=== PATIENT | female | born 1965 | race Caucasian/White ===

== ENCOUNTER 2024-10-18 07:40 | Emergency (ER) | payer OTHER, SELFPAY ==
[2024-10-18 07:41] VITALS: BP 127/82; PULSE 67; RESP 16; TEMP 36.8; O2SAT 98; BMI 33.6
--- NOTE | 2024-10-18 07:55 | CT_ITS ---
PROCEDURE: BRAIN/HEAD WITHOUT CONTRAST 10/18/2024 REASON FOR EXAM: HEADACHE LEFT EYE PAIN TECHNIQUE: Procedure Code: CTBR Modality: CT Procedure: BRAIN/HEAD WITHOUT CONTRAST Coronal and Sagittal reconstruction series were provided. One or more dose reduction techniques were used (e.g., Automated exposure control, adjustment of the mA and/or kV according to patient size, use of iterative reconstruction technique. RADIATION DOSE SUMMARY: CTDlvol: 44.99 mGy DLP: 745.49 mGycm COMPARISON: None FINDINGS: Brain: Normal appearance of the brain parenchyma. No acute intracranial hemorrhage. No significant edema, mass effect, or midline shift. CSF Spaces: The ventricles are midline without hydrocephalus. Sinuses/Mastoids: Well aerated. Bones: No skull fracture. No destructive skull lesion. CT/Brain/Head without Contrast IMPRESSION: No acute intracranial process [id number]
[2024-10-18] MEDS: Tetracaine 0.5% Ophthalmic Bottle 1 DRP LEFT EYE (08:06)
--- NOTE | 2024-10-18 08:19 | EX.ED.VIS.EY ---
HPI History of Present Illness Chief Complaint: Eye Problem Narrative Narrative: Patient is a 59-year-old male female with no known significant past medical history who presents to the emergency department the chief complaint of left eye pain. Patient states that she woke up this morning with severe left eye pain and denies any injury or trauma to her eye she also states that she is nauseous and has a headache with this on the left side of her head. She states that she has not anything happen like this before. States that she called her eye doctor and they advised her to come to the emergency department as they are not open in [place] on the weekend. Patient states that she does wear contacts. States that her vision is normal out of her left eye PFSH PFSH Home Medications ?Medication ?Instructions ?Recorded ?Last Taken ?Type ciprofloxacin HCl 0.3 % eye drops See Rx Instructions EACH EYE 10/18/24 Unknown Rx .COMPLEX #10 mL Allergy/AdvReac Type Severity Reaction Status Date / Time aspirin Allergy Rash Verified 10/18/24 07:43 meperidine (From Demerol) Allergy Rash Verified 10/18/24 07:43 Sulfa (Sulfonamide Allergy Rash Verified 10/18/24 07:43 Antibiotics) ROS ROS ED ROS Narrative Constitutional: Complains headache as noted above denies lightness dizziness Eyes: Complains of left eye pain as noted above denies double vision blurry vision Abdomen: Complains of nausea denies vomiting or diarrhea : Denies urinary symptoms Neurological: Denies numbness, weakness, tingling Skin: Denies any rashes or lesions EXAM Physical Exam Narrative Exam Narrative: General: Patient was lying in bed did appear to be uncomfortable secondary to her left eye pain Head: Atraumatic, normocephalic Eyes: PERRL bilaterally, EOMI bilaterally, patient has redness noted in her left eye and the conjunctiva. No drainage from the left eye no hazy cornea noted Neck: Soft, supple, trachea midline Cardiovascular: Regular rate and rhythm no murmurs gallops rubs noted Respiratory: Clear to auscultation bilaterally Abdomen: No tenderness to palpation Extremities: +5/5 strength in the bilateral upper and lower extremities Neurological: Patient follow commands and that she was at [facility] year is 2024 NIH of 0 GCS 15 Skin: Warm, dry, tact no rashes lesions noted Const Vital Signs: 10/18/24 07:41 Temperature 98.3 F Temperature Source Oral Pulse Rate 67 Respiratory Rate 16 Blood Pressure 127/82 H Blood Pressure Mean 97 Pulse Ox 98 Oxygen Delivery Method Room Air MDM MDM MDM Narrative Medical decision making narrative: Patient is a 59-year-old female who presents to the emergency department chief complaint of left-sided headache, left eye pain. On the differential diagnose includes but limited to intracranial hemorrhage, complex migraine, acute angle-closure glaucoma, corneal abrasion, tension headache, cluster headache. Once workup is obtained reviewed she will be reevaluated. Patient be given a gram of Tylenol, Zofran and ODT. Patient's eye exam was performed tetracaine applied followed by fluorescein stain patient has small area of uptake in the cornea indicating small corneal abrasion intraocular pressure was taken and it was noted be 21. Patient CT head and brain without contrast showed no acute intracranial processes. Will discuss case with ophthalmology. Discussed case with on-call bsa officer Dr. Enriquez who states that he will see her in the office this morning. I discussed this plan with the patient she is agreeable this plan. Patient will be given eyedrops with pseudomonal coverage for her contact lens use she was advised to not use any contact lenses in that eye. She was vies return with worsening symptoms or concerns. She is agreeable to plan all course concerns answered she was discharged home in stable condition. Discharge Plan Triage Chief Complaint: Eye Problem ED Provider: Norberto Flanagan Dx/Rx/DC Orders Clinical Impression: Abrasion of cornea, left, Acute left eye pain, Headache Prescriptions: New ciprofloxacin HCl 0.3 % drops See Rx Instructions .ROUTE .COMPLEX Qty: 10 0RF Rx Instructions: put 1-2 drps in affected eye(s) every 2hr up to 8 times/day x2days; then 4 times/day x5days Primary Care Provider: Care Physician,No Primary Referrals: Luis Enriquez MD [Med Staff - Active Staff] - Care Physician,No Primary [Primary Care Provider] - Radha Koehler NP-C [[facility]] - Activity Restrictions/Additional Instructions: Go to the bsa officer office Dr. Enriquez at 1130 and he will see you in the office today. Use the eyedrops as prescribed. Do not put any contact lens in your left eye over the next several days. Return with worsening symptoms or any concerns. Rotate Tylenol and ibuprofen [id number] for your headache when you do this can take some every 3 hours with max dose Tylenol in 24 hours 4000 mg max dose of ibuprofen in 24 hours 3200 mg. Print Language: Chilean Disposition Disposition: Home, Self Care
--- OUTSIDE RECORDS SUMMARY | 2024-10-18 08:26 | XMS RPT_ITS | CCD ---
Author Organization [facility] Care Team Providers Care Spark Plug Tester Name Role Phone No Family, Physician Unavailable Unavailable JORGE A MANNING Unavailable Unavailable JORGE A MANNING Unavailable Unavailable JORGE A MANNING Unavailable Unavailable Javon Lott Attending Unavailable Spike LIZARRAGA, Andrea Durham Unavailable Huan AGRONOMY SUPERVISOR, Irwin Unavailable Unavailable Unavailable Unavailable Angela AGRONOMY SUPERVISOR, Christelle Unavailable Daniel ELLIS, Brittny Zambrano Unavailable Unavaila ble Jay AGRONOMY SUPERVISOR, Nickie Unavailable Unavailable HARTLEY SMT TECHNICIAN~[phone], HARTLEY AMI E Attending Unavailable NONE, NONE Primary Care Unavailable HARTLEY SMT TECHNICIAN, AMI E Consulting Unavailable HARTLEY SMT TECHNICIAN~[phone], HARTLEY AMI E Admitting Unavailable HARTLEY SMT TECHNICIAN, AMI E Consulting Unavailable NONE, NONE Consulting Unavailable NONE, NONE Consulting Unavailable SPIKE, LUKE E Attending Unavailable SPIKE, LUKE E Consulting Unavailable SPIKE, LUKE E Primary Care Unavailable SPIKE, LUKE E Admitting Unavailable PROVIDER, UNKNOWN Consulting Unavailable Allergies Allergy Classification Reported Allergen(s) Allergy Type Date of Onset Reaction(s) Facility (20 sources) Meperidine Drug Allergy [facility] (20 sources) Sulfonamides (Antibiotic) Itching [facility] (20 sources) Iodinated Contrast [facility] (1 source) Acetaminophen / oxyCODONE Drug Allergy [facility] (1 source) Aspirin Drug Allergy [facility] (1 source) bee venom Drug allergy (disorder) [facility] (1 source) Meperidine Drug Allergy [facility] (1 source) Morphine Drug Allergy [facility] (1 source) Sulfonamides (Antibiotic) Drug allergy (disorder) [facility] (1 source) Aspirin Drug Allergy [facility] (1 source) Meperidine Drug Allergy [facility] (1 source) Sulfonamides (Antibiotic) Drug allergy (disorder) [facility] (1 source) BEE STING; Translations: [BEE STING] Propensity to adverse reactions (disorder) [facility] Medications Current Medications Medication Drug Class(es) Dates Sig (Normalized) Sig (Original) amoxicillin 875 mg oral tablet (1 source) Penicillin-class Antibacterial Start: 11-27-2023 amoxicillin 875 mg tablet ; 1 (one) tablet twice a day for 7 days Quantity: 14 {Tablet} Refills: 0 Ordered: 27-Nov-2023 ELHAM Lala Start: 27-Nov-2023 Calcium Citrate / Cholecalciferol (2 sources) Vitamin D Calcium Citrate + D Completed/Discontinued Medications Medication Drug Class(es) Dates Sig (Normalized) Sig (Original) 12 hr buPROPion hydrochloride 150 mg extended release oral tablet (20 sources) Aminoketone Start: 05-04-2023 End: 11-27-2023 buPROPion HCL SR 150 mg tablet,12 hr sustained-release ; 1 (one) tablet twice daily for 30 days Quantity: 60 {Tablet} Refills: 2 Ordered: 27-Nov-2023 RENZO Thompson Start: 04-May-2023 End: 27-Nov-2023 Status: Inactive Start: 02-13-2023 buPROPion HCL SR 150 mg tablet,12 hr sustained-release ; 1 (one) tablet twice daily for 30 days Quantity: 60 {Tablet} Refills: 2 Ordered: 13-Feb-2023 ELHAM Lala Start: 13-Feb-2023 cholecalciferol 0.125 mg oral capsule (20 sources) Vitamin D Start: 05-08-2023 End: 11-27-2023 cholecalciferol (vitamin D3) 125 mcg (5,000 unit) capsule ; 1 (one) capsule daily for 30 days Quantity: 30 {Capsule} Refills: 2 Ordered: 27-Nov-2023 JayRENZO Nickie Start: 08-May-2023 End: 27-Nov-2023 Status: Inactive Start: 02-13-2023 cholecalcifero l (vitamin D3) 125 mcg (5,000 unit) capsule ; 1 (one) capsule daily for 30 days Quantity: 30 {Capsule} Refills: 2 Ordered: 13-Feb-2023 RENZO Pressley Irwin Start: 13-Feb-2023 ferrous sulfate 325 mg oral tablet (20 sources) Start: 04-17-2023 End: 05-17-2023 ferrous sulfate 325 mg (65 m g iron) tablet ; 1 (one) tablet two times daily for 30 days Quantity: 60 {Tablet} Refills: 0 Ordered: 17-Apr-2023 ELHAM Lala Start: 17-Apr-2023 End: 17-May-2023 Status: Inactive Start: 03-22-2023 ferrous sulfat e 325 mg (65 mg iron) tablet ; 1 (one) tablet two times daily for 30 days Quantity: 60 {Tablet} Refills: 0 Ordered: 22-Mar-2023 ELHAM Lala Start: 22-Mar-2023 Start: 02-13-2023 End: 03-15-2023 ferrous sulfate 325 mg (65 m g iron) tablet ; 1 (one) tablet two times daily for 30 days Quantity: 60 {Tablet} Refills: 0 Ordered: 13-Feb-2023 ELHAM Lala Start: 13-Feb-2023 End: 15-Mar-2023 Status: Inactive Problems Active Problems Problem Classification Problem Date Documented Da te Episodic/Chronic Administrative/social admission (20 sources) Encounter for pre-employment examination; Translations: [Worried well] Onset: 06-13-2018 02-06-2023 Episodic Deficiency and other anemia (20 sources) Iron deficiency anemia; Translations: [Iron deficiency anemia, unspecified] 02-13-2023 Episodic Disorders of teeth and jaw (20 sources) Infection of tooth; Translations: [Periapical abscess without sinus] 02-06-2023 Episodic Influenza (1 source) Influenza Onset: 03-09-2017 Malaise and fatigue (20 sources) Fatigue; Translations: [Other fatigue] 02-06-2023 Episodic Nutritional deficiencies (20 sources) Vitamin D deficiency; Translations: [Vitamin D deficiency, unspecified] 02-13-2023 Chronic Other aftercare (20 sources) Post-discharge follow-up; Translations: [Encounter for follow-up examination after completed treatment for conditions other than malignant neoplasm] 02-06-2023 Episodic Other screening for suspected conditions (not mental disorders or infectious disease) (20 sources) Patient encounter status; Translations: [Encounter for screening mammogram for malignant neoplasm of breast] 02-06-2023 Episodic Other upper respiratory infections (2 sources) Sinusitis; Translations: [Chronic sinusitis, unspecified] 11-28-2023 Chronic Residual codes; unclassified (20 sources) Tobacco use and exposure - finding; Translations: [Tobacco use] 02-06-2023 Episodic Unclassified (2 sources) ENCOUNTER FOR PRE-EMPLOYMENT EXAM / Z02.1(ICD-10) Onset: 09-26-2016 Unclassified (11 sources) Follow up for multiple chronic conditions - The patient is here for follow-up of other condition(s) (tobacco use, anemia). The patient always takes the prescribed medications. No side effects noted. The patient engages in regular exercise program 3-5 times per week. The patient states that the disease has no overall impact. Note for Multiple chronic conditions follow-up: Pt using vape pen 05-04-2023 Past or Other Problems Problem Classification Problem Date Documented Da te Episodic/Chronic Other gastrointestinal disorders (3 sources) Bariatric surgery status; Translations: [BARIATRIC SURGERY STATUS] Onset: 10-19-2023 Episodic Unclassified (1 source) ENCOUNTER FOR PRE-EMPLOYMENT EXAM; Translations: [ENCOUNTER FOR PRE-EMPLOYMENT EXAM] Onset: 09-25-2016 Unclassified (20 sources) Labs - Patient here to discuss what lab work needs done and to update on dental appointment. Patient states that she was recently to her dentist and he is planning to place orthodontic device following numerous extractions. She notes that her dentist voiced possible concern for a swollen lymph node and wanted to check if this was something to be concerned about. Patient notes primary concern for a source of her fatigue/tiredness, as discussed at previous OV patient is concerned for possible nutrient deficiency based on her history of Amador-en-Y gastric bypass, she also notes possible concern for decreased activity since her dental procedures as the source of symptoms. Patient also voices concern for smoking cessation stating that she has experienced improvement with regular exercise and nicotine replacement patches in the past but is unsure if she should be trying a different option for treatment. 02-07-2023 Unclassified (20 sources) New Patient 01-19-2023 Unclassified (20 sources) [ADDITIONAL REASON] Follow up consultation - The patient is here to follow-up after Emergency Room/Urgent Care (Patient seen at [facility] ER on 01/08/23 for Dental pain and Periodontal abscess. She was given Clindamycin IV at the ER and given Clindamycin to take orally TID X 7 days as well as Zofran as needed.). Note for Consultation follow-up: She had 6 teeth removed on 01/02/23. She contacted her dentist office and was put on Amoxicillin and Medrol Donovan 01/06/23. She was having increased mouth pain and not feeling well. Her dentist was unable to see her on 01/08/2023. Later that day, she went to the ER because she was concerned of her heart. She was seen by dentist on 01/11/23 and again yesterday. 01-19-2023 Unclassified (20 sources) Follow up laboratory test results - Note for Laboratory test results follow-up: Pt labs drawn 02/06/23, here to review results and determine if nutrient supplementation indicated. Pt would also like to discuss initiating management for smoking cessation and medication options. 02-13-2023 Unclassified (3 sources) Follow up consultation - The patient is here to follow-up after Emergency Room/Urgent Care (Patient seen at [facility] ER on 01/08/23 for Dental pain and Periodontal abscess. She was given Clindamycin IV at the ER and given Clindamycin to take orally TID X 7 days as well as Zofran as needed.). Note for Consultation follow-up: She had 6 teeth removed on 01/02/23. She contacted her dentist office and was put on Amoxicillin and Medrol Donovan 01/06/23. She was having increased mouth pain and not feeling well. Her dentist was unable to see her on 01/08/2023. Later that day, she went to the ER because she was concerned of her heart. She was seen by dentist on 01/11/23 and again yesterday. 01-19-2023 Unclassified (3 sources) [ADDITIONAL REASON] New Patient 01-19-2023 Unclassified (1 source) Cold Symptoms 11-27-2023 Unclassified (1 source) Cold Symptoms - Symptoms include nasal congestion, runny nose, ear pain, sore throat, hoarseness, productive cough (and chest congestion), chills, general malaise and headache, but do not include fever. The onset was gradual 9 day(s) ago. The symptoms occur frequently. The patient describes this as moderate in severity and worsening. Current treatment includes NSAIDs (none today). Risk factors do not include smoking. The patient has been exposed to an individual with similar symptoms (). Patient denies history of seasonal allergies, recurrent sinusitis, recurrent strep pharyngitis, asthma, tonsillectomy or recurrent ear infections. Note for Upper respiratory infection: patient had vomiting and diarrhea last Sunday and Sunday11-27-2023 Unclassified (1 source) Cold Symptoms - Symptoms include nasal congestion, runny nose, ear pain, sore throat, hoarseness, productive cough (and chest congestion), chills, general malaise and headache, but do not include fever. The onset was gradual 9 day(s) ago. The symptoms occur frequently. The patient describes this as moderate in severity and worsening. Current treatment includes NSAIDs (none today). Risk factors do not include smoking. The patient has been exposed to an individual with similar symptoms (). Patient denies history of seasonal allergies, recurrent sinusitis, recurrent strep pharyngitis, asthma, tonsillectomy or recurrent ear infections. Note for Upper respiratory infection: patient had vomiting and diarrhea last Sunday and Sunday11-28-2023 Results Test Name Value Interpretation Reference Range Facility COPPERon 10-23-2023 Copper, Serum 113 ug/dL Normal 80-158 [facility] Comment on above: Result Comment: Dete ction Limit = 5 Performed By: #### C OPPER #### Performed for [facility] [address] [place], [place] [address] VITAMIN B1 THIAMINEon 2023 Vit. B1, Whole Blood 113.0 nmol/L Normal 66.5-200.0 [facility] Comment on above: Performed By: #### [employer] #### Performed for [place] [address] [place], [place] [address] ZINCon 10-23-2023 Zinc, Plasma or Serum 83 ug/dL Normal 44-115 [facility] Comment on above: Result Comment: Dete ction Limit = 5 Performed By: #### [employer] #### Performed for [place] [address] [place], [place] [address] SELENIUMon 10-22-2023 Selenium, Serum/Plasma 151 ug/L Normal 93-198 [facility] Comment on above: Performed By: #### [employer] #### Performed for [place] [address] [place], [place] [address] VITAMIN B6on 10-22-2023 Vitamin B6 4.1 ug/L Normal 3.4-65.2 [facility] Comment on above: Result Comment: Defi ciency: <3.4 Marginal: 3.4 - 5.1 Adequate: >5.1 Performed By: #### V B6 #### Performed [address], [place] [address] 25-hydroxyvitamin D [Mass/Vo l]on 10-19-2023 25-hydroxyvitamin D3 [Mass/Vol] 27.1 ng/mL Low 30.0-100.0 [facility] Comment on above: Performed By: #### 6 2292-8 #### [place] [address] [place] - [place] HERNANDEZ [id number] HVITD VITAMIN D INTERPRETA TION VITAMIN D STATUS RANGE DEFICIENCY <20 ng/mL INSUFFICIENCY 20-30 ng/mL SUFFICIENCY 30-100 ng/mL TOXICITY >100 ng/mL Normal [facility] Comment on above: Performed By: #### 6 2292-8 #### [place] [address] [place] - [place] HARDYIA [id number] CBC W Auto Differential pane l (Bld)on 10-19-2023 Basophils (Bld) [#/Vol] 0.05 10*3/uL Normal <=0.70 [facility] Comment on above: Performed By: #### 5 7021-8 #### [facility] [address] [place] [address] [place] - [place] HARDYIA [id number] Basophils/100 WBC (Bld) 0.8 % Normal <=2.0 [facility] Comment on above: Performed By: #### 5 7021-8 #### [address] [facility] Director - [place] HARDYIA [id number] Eosinophils (Bld) [#/Vol] 0.07 10*3/uL Normal <=0.70 [facility] Comment on above: Performed By: #### 5 7021-8 #### [place] [address] [place] [address] [place] - [place] HARDYIA [id number] Eosinophils/100 WBC (Bld) 1.2 % Normal <=10.0 [facility] Comment on above: Performed By: #### 5 7021-8 #### [address] [place] [address] [place] - [place] HARDYIA [id number] Erythrocyte distribution width (RBC) [Entitic vol] 39.8 fL Normal 36.4-46.3 [facility] Comment on above: Performed By: #### 5 7021-8 #### [place] [address] [place] [address] [place] - [place] HARDYIA [id number] Hematocrit (Bld) [Volume fraction] 40.2 % Normal 37.0-47.0 [facility] Comment on above: Performed By: #### 5 7021-8 #### [address] [place] [address] [place] - [place] HARDYIA [id number] Hemoglobin (Bld) [Mass/Vol] 13.5 g/dL Normal 12.0-16.0 [facility] Comment on above: Performed By: #### 5 7021-8 #### [place] [address] [place] - [place] Herzog CLIA [id number] Immature granulocytes (Bld) [#/Vol] 0.01 10*3/uL Normal <=0.10 [facility] Comment on above: Performed By: #### 5 7021-8 #### [place] [address] [place] - [place] Herzog CLIA [id number] Immature granulocytes/100 WBC (Bld) 0.20 % Normal <=1.50 [facility] Comment on above: Performed By: #### 5 7021-8 #### [place] [address] [place] - [place] Herzog CLIA [id number] Lymphocytes (Bld) [#/Vol] 2.15 10*3/uL Normal 1.20-3.40 [facility] Comment on above: Performed By: #### 5 7021-8 #### [place] [address] [place] - [place] Herzog CLIA [id number] Lymphocytes/100 WBC (Bld) 35.4 % Normal 20.0-40.0 [facility] Comment on above: Performed By: #### 5 7021-8 #### [place] [address] [place] - [place] Herzog CLIA [id number] MCH (RBC) [Entitic mass] 29.1 pg Normal 27.0-31.0 [facility] Comment on above: Performed By: #### 5 7021-8 #### [place] [address] [place] - [place] Herzog CLIA [id number] MCHC (RBC) [Mass/Vol] 33.6 g/dL Normal 32.0-36.0 [facility] Comment on above: Performed By: #### 5 7021-8 #### [place] [address] [facility]. [place] [address] [place] - [place] HARDYIA [id number] MCV (RBC) [Entitic vol] 86.6 fL Normal 80.0-100.0 [facility] Comment on above: Performed By: #### 5 7021-8 #### [address] [place] [address] [place] - [place] Herzog CLIA [id number] Monocytes (Bld) [#/Vol] 0.36 10*3/uL Normal 0.10-0.60 [facility] Comment on above: Performed By: #### 5 7021-8 #### [address] [place] [address] [place] - [place] Herzog CLIA [id number] Monocytes/100 WBC (Bld) 5.9 % Normal <=8.0 [facility] Comment on above: Performed By: #### 5 7021-8 #### [address] [place] [address] [place] - [place] Herzog CLIA [id number] Neutrophils (Bld) [#/Vol] 3.44 10*3/uL Normal 1.40-6.50 [facility] Comment on above: Performed By: #### 5 7021-8 #### [address] [place] [address] [place] - [place] Herzog CLIA [id number] Neutrophils/100 WBC (Bld) 56.5 % Normal 50.0-70.0 [facility] Comment on above: Performed By: #### 5 7021-8 #### [address] [place] [address] [place] - [place] Herzog CLIA [id number] Nucleated RBC (Bld) [#/Vol] 0.00 10*3/uL Normal <=0.10 [facility] Comment on above: Performed By: #### 5 7021-8 #### [facility] [address] [place] [address] [place] - [place] HERNANDEZ [id number] Platelet mean volume (Bld) [Entitic vol] 10.2 fL Normal 9.0-13.0 [facility] Comment on above: Performed By: #### 5 7021-8 #### [facility] [address] [place] [address] [place] - [place] HARDYIA [id number] Platelets (Bld) [#/Vol] 310 10*3/uL Normal 130-400 [facility] Comment on above: Performed By: #### 5 7021-8 #### [facility] [address] [place] [address] [place] - [place] HERNANDEZ [id number] RBC (Bld) [#/Vol] 4.64 10*6/uL Normal 4.00-6.30 [facility] Comment on above: Performed By: #### 5 7021-8 #### [facility] [address] [place] [address] [place] - [place] HARDYIA [id number] WBC (Bld) [#/Vol] 6.08 10*3/uL Normal 4.80-10.80 [facility] Comment on above: Performed By: #### 5 7021-8 #### [facility] [address] [place] [address] [place] - [place] HERNANDEZ [id number] Comprehensive metabolic 2000 panelon 10-19-2023 Albumin [Mass/Vol] 3.9 g/dL Normal 3.4-5.0 [facility] Comment on above: Performed By: #### 2 276-4, 91061-8, 49313-4, 2284-8, 19118-6, 2132-9, 87306-1 #### [facility] [address] [place] [address] [place] - [place] HERNANDEZ [id number] ALP [Catalytic activity/Vol] 99 U/L Normal 50-136 [facility] Comment on above: Performed By: #### 2 276-4, 64075-2, 77460-5, 2284-8, 16703-9, 2131-9, 37918-4 #### [facility] [address] [place] [address] [place] - [place] HERNANDEZ [id number] ALT [Catalytic activity/Vol] 39 U/L Normal 14-59 [facility] Comment on above: Performed By: #### 2 276-4, 31814-4, 93174-0, 2284-8, 29629-5, 2131-9, 49820-6 #### [facility] [address] [place] [address] [place] - [place] HERNANDEZ [id number] Anion gap [Moles/Vol] 6.0 mmol/L Normal <=15.0 [facility] Comment on above: Performed By: #### 2 276-4, 45864-1, 12363-7, 2284-8, 42247-0, 2131-9, 02910-0 #### [facility] [address] [place] [address] [place] - [place] HERNANDEZ [id number] AST [Catalytic activity/Vol] 24 U/L Normal 15-37 [facility] Comment on above: Performed By: #### 2 276-4, 83629-8, 95662-1, 2284-8, 42161-4, 2131-9, 93749-4 #### [facility] [address] [place] [address] [place] - [place] HERNANDEZ [id number] Bilirubin [Mass/Vol] 0.5 mg/dL Normal 0.2-1.0 [facility] Comment on above: Performed By: #### 2 276-4, 24904-4, 82817-5, 2284-8, 92371-0, 2131-9, 88695-9 #### [facility] [address] [place] [address] [place] - [place] HERNANDEZ [id number] Calcium [Mass/Vol] 9.9 mg/dL Normal 8.5-10.1 [facility] Comment on above: Performed By: #### 2 276-4, 96107-1, 00639-5, 2284-8, 83304-8, 213-9, 11019-6 #### [facility] [address] [place] [address] [place] - [place] HERNANDEZ [id number] Chloride [Moles/Vol] 107 mmol/L Normal 98-107 [facility] Comment on above: Performed By: #### 2 276-4, 91203-7, 95290-9, 2284-8, 33238-0, 2131-9, 33177-3 #### [facility] [address] [place] [address] [place] - [place] HERNANDEZ [id number] CO2 [Moles/Vol] 28 mmol/L Normal 21-32 [facility] Comment on above: Performed By: #### 2 276-4, 44789-7, 45568-0, 2284-8, 06189-1, 2131-9, 24643-8 #### [facility] [address] [place] [address] [place] - [place] HERNANDEZ [id number] Creatinine [Mass/Vol] 0.62 mg/dL Normal 0.51-0.95 [facility] Comment on above: Performed By: #### 2 276-4, 24999-5, 09205-8, 2284-8, 00645-8, 2131-9, 99019-7 #### [facility] [address] [place] [address] [place] - [place] HERNANDEZ [id number] GFR/1.73 sq M.predicted MDRD (S/P/Bld) [Vol rate/Area] mL/min/{1.73_m2} Normal >=59 [facility] Comment on above: Performed By: #### 2 276-4, 39929-8, 64639-1, 2284-8, 31810-2, 2131-9, 00975-8 #### [facility] [address] [place] [address] [place] - [place] HERNANDEZ [id number] Glucose [Mass/Vol] 99 mg/dL Normal 74-106 [facility] Comment on above: Performed By: #### 2 276-4, 91711-0, 90059-5, 2284-8, 42428-3, 2131-9, 26411-7 #### [facility] [address] [place] [address] [place] - [place] HERNANDEZ [id number] HGFR GLOMERULAR FILTRATIO N RATE INTERPRETATION~The eGFR is calculated using the MDRD equation.~This equation has been validated in patients with chronic kidney disease;~however, it underestimates the GFR in healthy patients with GFR's over 60 mL/min.~The equation is not valid in children under the age of 18.~NOTE: Criteria for Chronic Kidney Disease:~ ~1. Kidney damage for at least three months, as defined~by structural or functional abnormalities of the kidney,~with or without decreased glomerular filtration rate, manifested by either:~* Pathological abnormalities or~* Markers of Kidney damage, including abnormalities in~the composition of the blood or urine or abnormalities in imaging tests.~ ~2. GFR <60 mL/min/1.73 m squared for at least three months, with or without kidney damage.~ Normal [facility] Comment on above: Performed By: #### 2 276-4, 44093-9, 34496-6, 2284-8, 25451-4, 2131-9, 08710-7 #### [facility] [address] [place] [address] [place] - [place] HERNANDEZ [id number] Potassium [Moles/Vol] 4.3 mmol/L Normal 3.5-5.1 [facility] Comment on above: Performed By: #### 2 276-4, 51803-8, 41451-7, 2284-8, 74084-5, 2131-9, 07492-8 #### [facility] [address] [place], [place] [address] [facility] [facility] [id number] Protein [Mass/Vol] 7.1 g/dL Normal 6.4-8.2 [facility] Comment on above: Performed By: #### 2 276-4, 17572-5, 90003-3, 2284-8, 48470-2, 2132-9, 35515-0 #### [facility] [address] [place] [address] [place] - [facility] [id number] Sodium [Moles/Vol] 141 mmol/L Normal 136-145 [facility] Comment on above: Performed By: #### 2 276-4, 69192-4, 43869-0, 2284-8, 61156-0, 2-9, 61636-1 #### [place] [address] [place] [address] [place] - [facility] [id number] Urea nitrogen [Mass/Vol] 15 mg/dL Normal 7-17 [facility] Comment on above: Performed By: #### 2 276-4, 62150-1, 51421-3, 2284-8, 80032-3, 2132-9, 72814-6 #### [place] [address] [place], [place] [address] [place] - [facility] [id number] FERRITINon 10-19-2023 Ferritin [Mass/Vol] 11 ng/mL Normal 8-252 [facility] Comment on above: Performed By: #### Z INC #### Performed for [facility] [address] [place], [place] [address] FOLATEon 10-19-2023 Folate [Mass/Vol] 14.6 ng/mL Normal 3.1-17.5 [facility] Comment on above: Performed By: #### [employer] #### Performed for [facility] [address] [place], [place] [address] HbA1c Calc (Bld) [Mass fract ion]on 09-06-2024 Average glucose Estimated from glycated hemoglobin (Bld) [Mass/Vol] 111 mg/dL Normal 68-125 [facility] Comment on above: Performed By: #### 1 7855-8 #### [facility] [address] [facility]. [place] [address] Shorer - Ana HERNANDEZ [id number] HA1C A1C INTERPRETATION % A1c (NGSP) Interpretation 3.8 - 6.4 Non-Diabetic Range 5.7 - 6.4 Prediabetic >6.5 Action Suggested The eAG (estimated average glucose) is an estimation of one?s average blood glucose level, calculated based on A1C test results, reported using the same units (mg/dL) seen on blood glucose meters. Normal [facility] Comment on above: Performed By: #### 1 7855-8 #### [address] [place] [address] Shorer - Ana HERNANDEZ [id number] HbA1c (Bld) [Mass fraction] 5.5 %A1C Normal 4.2-6.3 [facility] Comment on above: Performed By: #### 1 7855-8 #### [place] [address] [facility]. [place] [address] Shorer - Ana HERNANDEZ [id number] Iron and Iron binding capaci ty panelon 10-19-2023 Iron [Mass/Vol] 96 ug/dL Normal 50-170 [facility] Comment on above: Performed By: #### [employer] #### Performed for [facility] [address], [place] [address] Iron binding capacity [Mass/Vol] 462 ug/dL High 250-450 [facility] Comment on above: Performed By: #### [employer] #### Performed for [address] [address] Iron saturation [Mass fraction] 21 % Low 25-50 [facility] Comment on above: Performed By: #### [employer] #### Performed for [place] [address] [place], [place] [address] Lipid panel with direct LDLo n 10-19-2023 Cholesterol [Mass/Vol] 240 mg/dL High <=200 [facility] Comment on above: Performed By: #### 2 276-4, 09561-3, 29442-0, 2284-8, 35990-7, 2132-9, 66189-8 #### [facility] [address] [place], [place] [address] Shorer - Ana HERNANDEZ [id number] Cholesterol in HDL [Mass/Vol] 90 mg/dL High 40-59 [facility] Comment on above: Performed By: #### 2 276-4, 81901-9, 64376-7, 2284-8, 01442-4, 2132-9, 06685-6 #### [facility] [address] [place] [address] Shorer - Ana HERNANDEZ [id number] Cholesterol in LDL [Mass/Vol] 127 mg/dL High 5-100 [facility] Comment on above: Performed By: #### 2 276-4, 48757-6, 19778-6, 2284-8, 78210-8, 2132-9, 80655-2 #### [facility] [address] [place] [address] Shorer - Ana HERNANDEZ [id number] Cholesterol in LDL/Cholesterol in HDL [Mass ratio] 1.4 {ratio} Normal [facility] Comment on above: Performed By: #### 2 276-4, 83977-0, 95924-2, 2284-8, 75594-2, 2132-9, 08565-2 #### [facility] [address] [place] [address] Shorer - Ana HERNANDEZ [id number] Cholesterol.total/ Cholesterol in HDL [Mass ratio] 2.7 {ratio} Normal [facility] Comment on above: Performed By: #### 2 276-4, 22888-4, 52707-4, 2284-8, 94077-6, 2132-9, 54013-4 #### [facility] [address] [place] [address] Shorer - Ana HERNANDEZ [id number] HCHOL CHOLESTEROL INTERPRETATION Desirable <200 Borderline High 200-239 High >240 Normal [facility] Comment on above: Performed By: #### 2 276-4, 94007-6, 37624-4, 2283-8, 63307-6, 2131-10, #### [facility] [address] [place] [address] Shorer - Ana HERNANDEZ [id number] HLDL LDL INTERPRETATION Desirable <100 Near Optimal 100-129 Borderline High 130-159 High 160-190 Very High >190 Normal [facility] Comment on above: Performed By: #### 2 276-4, 67512-2, 61059-7, 2283-8, 56058-3, 2131-10, #### [facility] [address] [place] [address] Shorer - Ana HERNANDEZ [id number] HLIPID ATEROSCLEROSIS RISK FACTORS FOR LDL, HDL, AND CHOLESTEROL RISK FACTOR SEX LDL/HDL CHOL/HDL - 1/2 Average M 1.00 3.43 F 1.47 3.27 Average M 3.55 4.97 F 3.22 4.44 2X Average M 6.25 9.55 F 5.03 7.05 3X Average M 7.99 23.39 F 6.14 11.04 Normal [facility] Comment on above: Performed By: #### 2 276-4, 80290-9, 65181-8, 4-8, 39837-5, 9, #### [facility] [address] [facility] [place] [address] Shorer - Ana HERNANDEZ [id number] HTRIG TRIGLYCERIDES INTERPRETATION Normal <150 Borderline High 150-199 High 200-499 Very High >500 Normal [facility] Comment on above: Performed By: #### 2 276-4, 43028-3, 48566-7, 2284-8, 21140-9, 2131-9, 62117-3 #### [facility] [address] [place] [address] Shorer - Ana HERNANDEZ [id number] Triglyceride [Mass/Vol] 118 mg/dL Normal <=150 [facility] Comment on above: Performed By: #### 2 276-4, 07984-7, 22102-3, 2284-8, 12046-2, 2131-9, 97383-5 #### [facility] [address] [place] [address] Shorer - Ana HERNANDEZ [id number] PT Coag (PPP) [Time]on 10-18 HPTINR INR REFERENCE RANGE INTERPRETATION Patients on Coumadin 2.0 - 3.0 Patients with mechanical heart valves 2.5 - 3.5 Normal [facility] Comment on above: Performed By: #### 5 902-2 #### [facility] [address] [place] [address] Shorer - Ana HERNANDEZ [id number] INR Coag (PPP) [Relative time] 1.0 {INR} Normal 0.8-1.1 [facility] Comment on above: Performed By: #### 5 902-2 #### [facility] [address] [place] [address] Shorer - Ana HERNANDEZ [id number] PT with INRon 10-19-2023 PT Coag (PPP) [Time] 10.8 s Normal 9.3-11.5 [facility] Comment on above: Performed By: #### 5 902-2 #### [facility] [address] [place] [address] Shorer - Ana HERNANDEZ [id number] PTH INTACTon 10-19-2023 Parathyrin.intact [Mass/Vol] 62.6 pg/mL Normal 18.4-80.1 [facility] Comment on above: Performed By: #### 2 731-8 #### [facility] [address] [place], [place] [address] Shorer - Ana HERNANDEZ [id number] Parathyrin.intact [Mass/Vol] on 10-19-2023 Calcium [Mass/Vol] 9.8 mg/dL Normal 8.5-10.1 [facility] Comment on above: Performed By: #### 2 731-8 #### [facility] [address] [place] [address] Shorer - Ana Herzog [facility] [id number] HIPTH INTACT PTH INTERPRET ATION Interpretation Intact PTH Calcium (pg/mL) (mg/dL) Normal 10.0 - 65.0 8.4 - 10.2 Primary Hyperparathyroidism >65.0 >10.2 Secondary Hyperparathyroidism >65.0 <10.2 Non-Parathyroid Hypercalcemia <65.0 >10.2 Hypoparathyroidism <10.2 <8.4 Non-Parathyroid Hypocalcemia 10.0 - 65.0 <8.4 Careful interpretation of the PTH result may be necessary to evaluate the falsely depressed PTH values in patients taking high doses of biotin. Normal [facility] Comment on above: Performed By: #### 2 731-8 #### [facility] [address] [place], [place] [address] Shorer - Ana Herzog [facility] [id number] TSH DL <= 0.05 mIU/L Qnon TSH Qn 0.869 uIU/mL Normal 0.358-3.740 [facility] Comment on above: Performed By: #### [employer] #### Performed for [facility] [address] [place], [place] [address] VITAMIN B12on 10-19-2023 Cobalamin (Vitamin B12) [Mass/Vol] 1508 pg/mL High 254-1,320 [facility] Comment on above: Performed By: #### [employer] #### Performed for [facility] [address] [place], [place] [address] CBC (INCLUDES DIFF/PLT)on Basophils (Bld) [#/Vol] 0.068 10*3/uL Normal 0-200 [facility] Comment on above: Performed By: #### 1 7306, 6399, 5616 #### [facility] [place] [address] Shorer: Wally Christensen MD Basophils/100 WBC (Bld) 1.1 % Normal [facility] Comment on above: Performed By: #### 1 7306, 6399, 5616 #### [facility] [place] [address] Shorer: Wally Christensen MD Eosinophils (Bld) [#/Vol] 0.093 10*3/uL Normal 15-500 [facility] Comment on above: Performed By: #### 1 7306, 63, 5616 #### [facility] of [place] [address] Shorer: Wally Christensen MD Eosinophils/100 WBC (Bld) 1.5 % Normal [facility] Comment on above: Performed By: #### 1 73, 63, 5616 #### [facility] [place] [address] Shorer: Wally Christensen MD Erythrocyte distribution width (RBC) [Ratio] 23.5 % High 11.0-15.0 [facility] Comment on above: Performed By: #### 1 7306, 63, 5616 #### [facility] [place] [address] Shorer: Wally Christensen MD Hematocrit (Bld) [Volume fraction] 39.6 % Normal 35.0-45.0 [facility] Comment on above: Performed By: #### 1 7306, 6399, 5616 #### [facility] [place] [address] Shorer: Wally Christensen MD Hemoglobin (Bld) [Mass/Vol] 13.0 g/dL Normal 11.7-15.5 [facility] Comment on above: Performed By: #### 1 7306, 63, 5616 #### [facility] [place] [address] Shorer: Wally Christensen MD Lymphocytes (Bld) [#/Vol] 2.003 10*3/uL Normal 850-3900 [facility] Comment on above: Performed By: #### 1 73, 63, 5616 #### [facility] [place] [address] Shorer: Wally Christensen MD Lymphocytes/100 WBC (Bld) 32.3 % Normal [facility] Comment on above: Performed By: #### 1 73, 63, 5616 #### [facility] [place] [address] Shorer: Wally Christensen MD MCH (RBC) [Entitic mass] 26.0 pg Low 27.0-33.0 [facility] Comment on above: Performed By: #### 1 73, 63, 5616 #### [facility] [place] [address] Shorer: Wally Christensen MD MCHC (RBC) [Mass/Vol] 32.8 g/dL Normal 32.0-36.0 [facility] Comment on above: Performed By: #### 1 73, 63, 5616 #### [facility] [place] [address] Shorer: Wally Christensen MD MCV (RBC) [Entitic vol] 79.2 fL Low 80.0-100.0 [facility] Comment on above: Performed By: #### 1 73, 63, 5616 #### [facility] [place] [address] Shorer: Wally Christensen MD Monocytes (Bld) [#/Vol] 0.453 10*3/uL Normal 200-950 [facility] Comment on above: Performed By: #### 1 73, 63, 5616 #### [facility] of [address], [address] [place] [address] Shorer: Wally Christensen MD Monocytes/100 WBC (Bld) 7.3 % Normal [facility] Comment on above: Performed By: #### 1 7306, 6399, 5616 #### [facility] of [address], [address] [place] [address] Shorer: Wally Christensen MD Neutrophils (Bld) [#/Vol] 3.584 10*3/uL Normal 3884-7673 [facility] Comment on above: Performed By: #### 1 7306, 6399, 5616 #### [facility] of [address], [address] [place] [address] Shorer: Wally Christensen MD Neutrophils/100 WBC (Bld) 57.8 % Normal [facility] Comment on above: Performed By: #### 1 73, 63, 5616 #### [facility] of [address], [address] [place] [address] Shorer: Wally Christensen MD Platelet mean volume (Bld) [Entitic vol] 10.5 fL Normal 7.5-12.5 [facility] Comment on above: Performed By: #### 1 7306, 6399, 5616 #### [facility] of [address], [address] [place] [address] Shorer: Wally Christensen MD Platelets (Bld) [#/Vol] 326 10*3/uL Normal 140-400 [facility] Comment on above: Performed By: #### 1 7306, 6399, 5616 #### [facility] of [address], [address] [place] [address] Shorer: aWlly Christensen MD RBC (Bld) [#/Vol] 5.00 10*6/uL Normal 3.80-5.10 [facility] Comment on above: Performed By: #### 1 7306, 6399, 5616 #### [facility] of [address], [address] [place] [address] Shorer: Wally Christensen MD WBC (Bld) [#/Vol] 6.2 10*3/uL Normal 3.8-10.8 [facility] Comment on above: Performed By: #### 1 7306, 6399, 5616 #### [facility] of [address], [address] [place] [address] Shorer: Wally Christensen MD CBC MORPHOLOGYon 05-05-2023 CBC MORPHOLOGY Normal NORMAL [facility] Comment on above: Result Comment: Vicky ptocytes 2 + Acanthocytes 2 + Poikilocytosis 3 + Sony cells 2 + Performed By: #### 1 7306, 6399, 5616 #### [facility] of [address], [address] [place] [address] Shorer: Wally Christensen MD IRON, TIBC AND FERRITIN PANE Horace 05-05-2023 % SATURATION 25 % (calc) Normal 16-45 [facility] Comment on above: Performed By: #### 1 7306, 6399, 5616 #### [facility] of [address], [address] [place] [address] Shorer: Wally Christensen MD Ferritin [Mass/Vol] 14 ng/mL Low 16-232 [facility] Comment on above: Performed By: #### 1 7306, 6399, 5616 #### [facility] of [address], [address] [place] [address] Shorer: Wally Christensen MD IRON BINDING CAPACITY 422 mcg/dL (calc) Normal 250-450 [facility] Comment on above: Performed By: #### 1 7306, 6399, 5616 #### [facility] of [address], [address] [place] [address] Shorer: Wally Christensen MD IRON, TOTAL 105 mcg/dL Normal 45-160 [facility] Comment on above: Performed By: #### 1 7306, 6399, 5616 #### [facility] of [address], [address] [place] [address] Shorer: Wally Christensen MD VITAMIN D,25-OH,TOTAL,IAon 0 05-05-2023 VITAMIN D,25-OH,TOTAL,IA 34 ng/mL Normal 30-100 [facility] Comment on above: Result Comment: Lesley min D Status 25-OH Vitamin D: Deficiency: <20 ng/mL Insufficiency: 20 - 29 ng/mL Optimal: > or = 30 ng/mL For 25-OH Vitamin D testing on patients on D2-supplementation and patients for whom quantitation of D2 and D3 fractions is required, the Quest[facility]ure[facility](TM) 25-OH VIT D, (D2,D3), LC/MS/MS is recommended: order code 92165 (patients >2yrs). See Note 1 Note 1 For additional information, please refer to http://education.FunGoPlay/faq/GKC597 (This link is being provided for informational/ educational purposes only.) Performed By: #### 1 7306, 6399, 5616 #### [facility] [address], [address] [place] [id number] Shorer: Wally Christensen MD Laboratory - Chemistry and C hemistry - challengeon 05-04-2023 Ferritin [Mass/Vol] 14 ng/mL Abnormal 16 - 232 ng/mL [facility], [facility].; [employer], [facility]. Laboratory - Hematology and Cell countson 05-04-2023 Basophils (Bld) [#/Vol] 0.068 10*3/uL Normal 0 - 200 {cells/uL} [employer], [employer].; [employer], [employer]. Basophils/100 WBC (Bld) 1.1 % Normal [employer], [facility].; [employer] Eosinophils (Bld) [#/Vol] 0.093 10*3/uL Normal 15 - 500 {cells/uL} [employer], [facility].; [employer], [employer]. Eosinophils/100 WBC (Bld) 1.5 % Normal [employer], [facility].; [employer] Erythrocyte distribution width (RBC) [Ratio] 23.5 % Abnormal 11.0 - 15.0 % [employer], [facility]. Hematocrit (Bld) [Volume fraction] 39.6 % Normal 35.0 - 45.0 % [facility]; [facility], [facility] Hemoglobin (Bld) [Mass/Vol] 13.0 g/dL Normal 11.7 - 15.5 g/dL [facility].; [facility], [facility] Lymphocytes (Bld) [#/Vol] 2.003 10*3/uL Normal 850 - 3900 {cells/uL} [facility].; [facility], [facility] Lymphocytes/100 WBC (Bld) 32.3 % Normal [facility].; [facility], [facility] MCH (RBC) [Entitic mass] 26.0 pg Abnormal 27.0 - 33.0 pg [facility].; [facility], [facility]. MCHC (RBC) [Mass/Vol] 32.8 g/dL Normal 32.0 - 36.0 g/dL [facility], [facility].; [place] [facility], [facility] MCV (RBC) [Entitic vol] 79.2 fL Abnormal 80.0 - 100.0 fL [facility].; [facility], [facility]. Monocytes (Bld) [#/Vol] 0.453 10*3/uL Normal 200 - 950 {cells/uL} [facility].; [facility], [facility]. Monocytes/100 WBC (Bld) 7.3 % Normal [facility].; [facility], [facility]. Neutrophils (Bld) [#/Vol] 3.584 10*3/uL Normal 1500 - 7800 {cells/uL} [facility].; [place] [employer], [facility]. Neutrophils/100 WBC (Bld) 57.8 % Normal [facility].; [facility], [facility]. Platelet mean volume (Bld) [Entitic vol] 10.5 fL Normal 7.5 - 12.5 fL [facility].; [facility], [facility]. Platelets (Bld) [#/Vol] 326 10*3/uL Normal 140 - 400 [facility].; [facility], [facility]. RBC (Bld) [#/Vol] 5.00 10*6/uL Normal 3.80 - 5.1 0 {Million/uL} [facility].; [facility]. WBC (Bld) [#/Vol] 6.2 10*3/uL Normal 3.8 - 10.8 [facility]; [facility] No Panel Informationon 05-03 % SATURATION 25 {%_(calc)} Normal 16 - 45 {%_(calc)} [facility].; [facility] IRON BINDING CAPACITY 422 Normal 250 - 450 [facility].; [facility] [employer] [facility] IRON, TOTAL 105 ug/dL Normal 45 - 160 ug/dL [facility].; [place] [employer] VITAMIN D,25-OH,TOTAL,IA 34 ng/mL Normal 30 - 100 ng/mL [facility].; [place] [employer]. CBC (INCLUDES DIFF/PLT)on Basophils (Bld) [#/Vol] 0.083 10*3/uL Normal 0-200 [facility] Comment on above: Performed By: #### 1 7306, 6399, 5616 #### [facility] [place] [address] Shorer: Wally Christensen MD Basophils/100 WBC (Bld) 1.1 % Normal [facility] Comment on above: Performed By: #### 1 7306, 6399, 5616 #### [facility] [place] [address] Shorer: Wally Christensen MD Eosinophils (Bld) [#/Vol] 0.158 10*3/uL Normal 15-500 [facility] Comment on above: Performed By: #### 1 7306, 6399, 5616 #### [facility] [place] [address] Shorer: Wally Christensen MD Eosinophils/100 WBC (Bld) 2.1 % Normal [facility] Comment on above: Performed By: #### 1 7306, 6399, 5616 #### [facility] [place] [id number] Shorer: Wally Christensen MD Hematocrit (Bld) [Volume fraction] 41.9 % Normal 35.0-45.0 [facility] Comment on above: Performed By: #### 1 73, 6399, 5616 #### [facility] of [address], [address] [place] [address] Shorer: Wally Christensen MD Hemoglobin (Bld) [Mass/Vol] 12.9 g/dL Normal 11.7-15.5 [facility] Comment on above: Performed By: #### 1 73, 6399, 5616 #### [facility] [place] [address] Shorer: Wally Christensen MD Lymphocytes (Bld) [#/Vol] 2.925 10*3/uL Normal 850-3900 [facility] Comment on above: Performed By: #### 1 73, 63, 5616 #### [facility] of [address], [address] [place] [address] Shorer: Wally Christensen MD Lymphocytes/100 WBC (Bld) 39.0 % Normal [facility] Comment on above: Performed By: #### 1 7306, 6399, 5616 #### [facility] [place] [address] Shorer: Wally Christensen MD MCH (RBC) [Entitic mass] 23.6 pg Low 27.0-33.0 [facility] Comment on above: Performed By: #### 1 7306, 6399, 5616 #### [facility] of [address], [address] [place] [address] Shorer: Wally Christensen MD MCHC (RBC) [Mass/Vol] 30.8 g/dL Low 32.0-36.0 [facility] Comment on above: Performed By: #### 1 73, 63, 5616 #### [facility] [place] [address] Shorer: Wally Christensen MD MCV (RBC) [Entitic vol] 76.6 fL Low 80.0-100.0 [facility] Comment on above: Performed By: #### 1 7306, 6399, 5616 #### [facility] [place] [address] Shorer: Wally Christensen MD Monocytes (Bld) [#/Vol] 0.555 10*3/uL Normal 200-950 [facility] Comment on above: Performed By: #### 1 7306, 63, 5616 #### [facility] of [address], [address] [place] [address] Shorer: Wally Christensen MD Monocytes/100 WBC (Bld) 7.4 % Normal [facility] Comment on above: Performed By: #### 1 73, 63, 5616 #### [facility] [place] [address] Shorer: Wally Christensen MD Neutrophils (Bld) [#/Vol] 3.78 10*3/uL Normal 9938-0890 [facility] Comment on above: Performed By: #### 1 7306, 6399, 5616 #### [facility] [place] [address] Shorer: Wally Christensen MD Neutrophils/100 WBC (Bld) 50.4 % Normal [facility] Comment on above: Performed By: #### 1 7306, 63, 5616 #### [facility] [place] [address] Shorer: Wally Christensen MD Platelet mean volume (Bld) [Entitic vol] 10.4 fL Normal 7.5-12.5 [facility] Comment on above: Performed By: #### 1 7306, 6399, 5616 #### [facility] [place] [address] Shorer: Wally Christensen MD Platelets (Bld) [#/Vol] 310 10*3/uL Normal 140-400 [facility] Comment on above: Performed By: #### 1 7306, 6399, 5616 #### [facility] [place] [address] Shorer: Wally Christensen MD RBC (Bld) [#/Vol] 5.47 10*6/uL High 3.80-5.10 [facility] Comment on above: Performed By: #### 1 7306, 6399, 5616 #### [facility] of [address], [address] [place] [address] Shorer: Wally Christensen MD RDW Normal 11.0-15.0 [facility] Comment on above: Result Comment: Due to platelet or RBC variability in size or shape the result cannot be reported accurately. Performed By: #### 1 7306, 6399, 5616 #### [facility] of [address], [address] [place] [address] Shorer: Wally Christensen MD WBC (Bld) [#/Vol] 7.5 10*3/uL Normal 3.8-10.8 [facility] Comment on above: Performed By: #### 1 7306, 6399, 5616 #### [facility] [place] [address] Shorer: Wally Christensen MD LIPID PANEL, [facility] 0 Cholesterol [Mass/Vol] 248 mg/dL High <200 [facility] Comment on above: Performed By: #### 1 7306, 6399, 5616 #### [facility] [place] [address] Shorer: Wally Christensen MD Cholesterol in HDL [Mass/Vol] 82 mg/dL Normal > OR = 50 [facility] Comment on above: Performed By: #### 1 7306, 6399, 5616 #### [facility] [place] [address] Shorer: Wally Christensen MD Cholesterol in LDL [Mass/Vol] 147 mg/dL High [facility] Comment on above: Result Comment: Refe rence range: <100 Desirable range <100 mg/dL for primary prevention; <70 mg/dL for patients with CHD or diabetic patients with > or = 2 CHD risk factors. LDL-C is now calculated using the Jovana calculation, which is a validated novel method providing better accuracy than the Friedewald equation in the estimation of LDL-C. See SS et al. RAJAT. 2013;310(19): 9909-6054 (http://education.[employer].Blizuu/faq/VNG529) Performed By: #### 1 7306, 6399, 5616 #### [facility] [place] [address] Shorer: Wally Christensen MD Cholesterol.total/ Cholesterol in HDL [Mass ratio] 3.0 {ratio} Normal <5.0 [facility] Comment on above: Performed By: #### 1 7306, 6399, 5616 #### [facility] [place] [address] Shorer: Wally Christensen MD NON HDL CHOLESTEROL 166 mg/dL (calc) High <130 [facility] Comment on above: Result Comment: For patients with diabetes plus 1 major ASCVD risk factor, treating to a non-HDL-C goal of <100 mg/dL (LDL-C of <70 mg/dL) is considered a therapeutic option. Performed By: #### 1 7306, 6399, 5616 #### [facility] [place] [address] Shorer: Wally Christensen MD Triglyceride [Mass/Vol] 85 mg/dL Normal <150 [facility] Comment on above: Performed By: #### 1 7306, 6399, 5616 #### [facility] [place] [address] Shorer: Wally Christensen MD Laboratory - Chemistry and C hemistry - challengeon 03-20-2023 Cholesterol [Mass/Vol] 248 mg/dL Abnormal [facility] Cholesterol in HDL [Mass/Vol] 82 mg/dL Normal [facility], [facility].; [facility], [facility]. Cholesterol in LDL [Mass/Vol] 147 mg/dL Abnormal [facility].; [facility], [facility]. Triglyceride [Mass/Vol] 85 mg/dL Normal [facility], [facility].; [place] [employer], [facility]. Laboratory - Hematology and Cell countson 03-20-2023 Basophils (Bld) [#/Vol] 0.083 10*3/uL Normal 0 - 200 {cells/uL} [facility], [facility].; [place] [facility], [facility]. Basophils/100 WBC (Bld) 1.1 % Normal [facility], [facility].; [facility], [facility]. Eosinophils (Bld) [#/Vol] 0.158 10*3/uL Normal 15 - 500 {cells/uL} [facility], [facility].; [place] [employer], [facility] Eosinophils/100 WBC (Bld) 2.1 % Normal [facility].; [place] [employer], [facility]. Hematocrit (Bld) [Volume fraction] 41.9 % Normal 35.0 - 45.0 % [facility], [facility].; [place] [employer], [facility]. Hemoglobin (Bld) [Mass/Vol] 12.9 g/dL Normal 11.7 - 15.5 g/dL [facility], [facility].; [facility], [facility]. Lymphocytes (Bld) [#/Vol] 2.925 10*3/uL Normal 850 - 3900 {cells/uL} [facility], [facility].; [place] [facility], [facility]. Lymphocytes/100 WBC (Bld) 39.0 % Normal [facility].; [place] [employer], [facility]. MCH (RBC) [Entitic mass] 23.6 pg Abnormal 27.0 - 33.0 pg [facility], [facility].; [place] [employer], [facility]. MCHC (RBC) [Mass/Vol] 30.8 g/dL Abnormal 32.0 - 36.0 g/dL [facility], [facility].; [place] [employer] MCV (RBC) [Entitic vol] 76.6 fL Abnormal 80.0 - 100.0 fL [facility].; [place] [facility] Monocytes (Bld) [#/Vol] 0.555 10*3/uL Normal 200 - 950 {cells/uL} [facility].; [facility] Monocytes/100 WBC (Bld) 7.4 % Normal [facility].; [place] [employer] [facility]. Neutrophils (Bld) [#/Vol] 3.78 10*3/uL Normal 1500 - 7800 {cells/uL} [facility].; [place] [employer] [facility] Neutrophils/100 WBC (Bld) 50.4 % Normal [facility].; [place] [employer] [facility]. Platelet mean volume (Bld) [Entitic vol] 10.4 fL Normal 7.5 - 12.5 fL [facility]; [place] [employer] [facility] Platelets (Bld) [#/Vol] 310 10*3/uL Normal 140 - 400 [facility]; [place] [employer] [facility]. RBC (Bld) [#/Vol] 5.47 10*6/uL Abnormal 3.80 - 5.1 0 {Million/uL} [facility].; [place] [employer] [facility]. WBC (Bld) [#/Vol] 7.5 10*3/uL Normal 3.8 - 10.8 [facility].; [place] [employer] [facility] No Panel Informationon 03-20 CHOL/HDLC RATIO 3.0 Normal [facility].; [place] [employer] [facility] NON HDL CHOLESTEROL 166 Abnormal [facility].; [place] [employer] [facility]. RDW SEE NOTE Normal 11.0 - 15.0 % [facility].; [place] [employer] [facility]. CBC (INCLUDES DIFF/PLT)on Basophils (Bld) [#/Vol] 0.122 10*3/uL Normal 0-200 [facility] Comment on above: Performed By: #### 5 042 #### [facility] [address] [place] Shorer: Wicho Pressley M.D.,PhD #### 29672, 1848, 46500, 927, 466, 80132, 5616 #### [facility] of [address], [address] [place], [place] [id number] Shorer: Wally Christensen MD Basophils/100 WBC (Bld) 1.6 % Normal [facility] Comment on above: Performed By: #### 5 042 #### [facility]/[address] [place], [place] Shorer: Wicho Pressley M.D.,PhD #### 82206, 6399, 39416, 927, 466, 94063, 5616 #### [facility] of [address] Shorer: Wally Christensen MD COMMENT(S) Normal [facility] Comment on above: Result Comment: Micr ocytosis 2 + Hypochromasia 1 + Sickle cells 1 + Ovalocytes 1 + Tear-drop cells 1 + Performed By: #### 5 042 #### [facility]/[address] [place], [place] Shorer: Wicho Pressley M.D.,PhD #### 05067, 6399, 16653, 92, 466, 43619, 5616 #### [facility] of [place] [id number] Shorer: Wally Christensen MD Eosinophils (Bld) [#/Vol] 0.16 10*3/uL Normal 15-500 [facility] Comment on above: Performed By: #### 5 042 #### [facility]/[address] [place], [place] Shorer: Wicho Pressley M.D.,PhD #### 45086, 6399, 40254, 927, 466, 67433, 5616 #### [facility] of [address], [address], [place] [id number] Shorer: Wally Christensen MD Eosinophils/100 WBC (Bld) 2.1 % Normal [facility] Comment on above: Performed By: #### 5 042 #### [facility]/[address] [place] Shorer: Wicho Pressley M.D.,PhD #### 98210, 6399, 88939, 927, 466, 34274, 5616 #### [facility] of [place] [address] Shorer: Wally Christensen MD Erythrocyte distribution width (RBC) [Ratio] 16.6 % High 11.0-15.0 [facility] Comment on above: Performed By: #### 5 042 #### [facility]/[address] [place], [place] Shorer: Wicho Pressley M.D.,PhD #### 88813, 6399, 18669, 927, 466, 12325, 5616 #### [facility] of [address] Shorer: Wally Christensen MD Hematocrit (Bld) [Volume fraction] 31.9 % Low 35.0-45.0 [facility] Comment on above: Performed By: #### 5 042 #### [facility]/[address] [place], [place] Shorer: Wicho Pressley M.D.,PhD #### 59574, 6399, 91991, 927, 466, 50954, 5616 #### [facility] of [place] [id number] Shorer: Wally Christensen MD Hemoglobin (Bld) [Mass/Vol] 9.7 g/dL Low 11.7-15.5 [facility] Comment on above: Performed By: #### 5 042 #### [facility]/[address] [place] Shorer: Wicho Pressley M.D.,PhD #### 24526, 6399, 91565, 927, 466, 68745, 5616 #### [facility] of [place] [address] Shorer: Wally Christensen MD Lymphocytes (Bld) [#/Vol] 2.424 10*3/uL Normal 850-3900 [facility] Comment on above: Performed By: #### 5 042 #### [facility]/[address] [place], [place] Shorer: Wicho Pressley M.D.,PhD #### 58429, 6399, 19837, 927, 466, 01350, 5616 #### [facility] of [place] [id number] Shorer: Wally Christensen MD Lymphocytes/100 WBC (Bld) 31.9 % Normal [facility] Comment on above: Performed By: #### 5 042 #### [facility]/[address] [place], [place] Shorer: Wicho Pressley M.D.,PhD #### 12690, 6399, 97059, 927, 466, 61321, 5616 #### [facility] of [place] [id number] Shorer: Wally Christensen MD MCH (RBC) [Entitic mass] 20.3 pg Low 27.0-33.0 [facility] Comment on above: Performed By: #### 5 042 #### [facility]/[address] [place], [place] Shorer: Wicho Pressley M.D.,PhD #### 08525, 6399, 32279, 927, 466, 85908, 5616 #### [facility] of [place] [id number] Shorer: Wally Christensen MD MCHC (RBC) [Mass/Vol] 30.4 g/dL Low 32.0-36.0 [facility] Comment on above: Performed By: #### 5 042 #### [facility]/[address] [place], [place] Shorer: Wicho Pressley M.D.,PhD #### 35976, 6399, 21406, 927, 466, 60841, 5616 #### [facility] of [address], [address], [place] [id number] Shorer: Wally Christensen MD MCV (RBC) [Entitic vol] 66.9 fL Low 80.0-100.0 [facility] Comment on above: Performed By: #### 5 042 #### [facility]/[address] [place], [place] Shorer: Wicho Pressley M.D.,PhD #### 75988, 6399, 81749, 927, 466, 19055, 5616 #### [facility] of [place] [address] [place] [id number] Shorer: Wally Christensen MD Monocytes (Bld) [#/Vol] 0.532 10*3/uL Normal 200-950 [facility] Comment on above: Performed By: #### 5 042 #### [facility]/[address] [place] Shorer: Wicho Pressley M.D.,PhD #### 72184, 6399, 78029, 927, 466, 85242, 5616 #### [facility] of [place] [id number] Shorer: Wally Christensen MD Monocytes/100 WBC (Bld) 7.0 % Normal [facility] Comment on above: Performed By: #### 5 042 #### [facility]/[address] [place] Shorer: Wicho Pressley M.D.,PhD #### 20616, 6399, 50233, 927, 466, 48057, 5616 #### [facility] [place] [address] Shorer: Wally Christensen MD Neutrophils (Bld) [#/Vol] 4.362 10*3/uL Normal 9580-2548 [facility] Comment on above: Performed By: #### 5 042 #### [facility]/[address] [place], [place] Shorer: Wicho Pressley M.D.,PhD #### 65976, 6399, 39157, 927, 466, 93743, 5616 #### [facility] of [place] [address] Shorer: Wally Christensen MD Neutrophils/100 WBC (Bld) 57.4 % Normal [facility] Comment on above: Performed By: #### 5 042 #### [facility]/[address] [place], [place] Shorer: Wicho Pressley M.D.,PhD #### 60130, 6399, 20231, 927, 466, 26049, 5616 #### [facility] of [place] [address] Shorer: Wally Christensen MD Platelet mean volume (Bld) [Entitic vol] 9.8 fL Normal 7.5-12.5 [facility] Comment on above: Performed By: #### 5 042 #### [facility]/[address] [place] Shorer: Wicho Pressley M.D.,PhD #### 23440, 6399, 67818, 927, 466, 40108, 5616 #### [facility] of [place] [id number] Shorer: Wally Christensen MD Platelets (Bld) [#/Vol] 397 10*3/uL Normal 140-400 [facility] Comment on above: Performed By: #### 5 042 #### [facility]/[address] [place] Shorer: Wicho Pressley M.D.,PhD #### 16228, 6399, 24430, 927, 466, 74239, 5616 #### [facility] of [place] [address] [place] , [address] [place] [address] Shorer: Wally Christensen MD RBC (Bld) [#/Vol] 4.77 10*6/uL Normal 3.80-5.10 [facility] Comment on above: Performed By: #### 5 042 #### [facility]/[address] [place] Shorer: Wicho Pressley M.D.,PhD #### 55091, 6399, 20522, 927, 466, 96196, 5616 #### [facility] of [place] [address] [place] , [address] [place] [address] Shorer: Wally Christensen MD WBC (Bld) [#/Vol] 7.6 10*3/uL Normal 3.8-10.8 [facility] Comment on above: Performed By: #### 5 042 #### [facility]/[address] [place] Shorer: Wicho Pressley M.D.,PhD #### 20067, 6399, 35734, 927, 466, 70246, 5616 #### [facility] of [place] [address] [place] , [address] [place], [place] [id number] Shorer: Wally Christensen MD COMPREHENSIVE METABOLIC PANE [facility] 02-11-2023 Albumin [Mass/Vol] 4.1 g/dL Normal 3.6-5.1 [facility] Comment on above: Performed By: #### 5 042 #### [facility]/[address] [place] Shorer: Wicho Pressley M.D.,PhD #### 01188, 6399, 37190, 927, 466, 23339, 5616 #### [facility] of [address], [address] [place], [place] [id number] Shorer: Wally Christensen MD Albumin/Globulin [Mass ratio] 1.6 {ratio} Normal 1.0-2.5 [facility] Comment on above: Performed By: #### 5 042 #### [facility]/[address] [place], [place] Shorer: Wicho Pressley M.D.,PhD #### 14657, 6399, 17787, 927, 466, 31172, 5616 #### [facility] of [place] [address] Shorer: Wally Christensen MD ALP [Catalytic activity/Vol] 69 U/L Normal 37-153 [facility] Comment on above: Performed By: #### 5 042 #### [facility]/[address] [place], [place] Shorer: Wicho Pressley M.D.,PhD #### 63960, 6399, 53559, 927, 466, 70101, 5616 #### [facility] of [address] Shorer: Wally Christensen MD ALT [Catalytic activity/Vol] 21 U/L Normal 6-29 [facility] Comment on above: Performed By: #### 5 042 #### [facility]/[address] [place], [place] Shorer: Wicho Pressley M.D.,PhD #### 66150, 6399, 02401, 927, 466, 20221, 5616 #### [facility] of [address], [address] [place] [address] Shorer: Wally Christensen MD AST [Catalytic activity/Vol] 22 U/L Normal 10-35 [facility] Comment on above: Performed By: #### 5 042 #### [facility]/[address] [place], [place] Shorer: Wicho Pressley M.D.,PhD #### 12027, 6399, 13946, 927, 466, 50493, 5616 #### [facility] of [place] [address] [place] , [address], [place] [id number] Shorer: Wally Christensen MD Bilirubin [Mass/Vol] 0.3 mg/dL Normal 0.2-1.2 [facility] Comment on above: Performed By: #### 5 042 #### [facility]/[address] [place], [place] Shorer: Wicho Pressley M.D.,PhD #### 31717, 6399, 83439, 927, 466, 74955, 5616 #### [facility] [address], [address], [place] [id number] Shorer: Wally Christensen MD BUN/CREATININE RATIO SEE NOTE: Normal 6-22 [facility] Comment on above: Result Comment: Not Reported: BUN and Creatinine are within reference range. Performed By: #### 5 042 #### [facility]/[address] [place], [place] Shorer: Wicho Pressley M.D.,PhD #### 98049, 6399, 73103, 927, 466, 71923, 5616 #### [facility] [address], [address] [place] [address] Shorer: Wally Christensen MD Calcium [Mass/Vol] 9.1 mg/dL Normal 8.6-10.4 [facility] Comment on above: Performed By: #### 5 042 #### [facility]/[address] [place] Shorer: Wicho Pressley M.D.,PhD #### 81015, 6399, 76902, 927, 466, 52845, 5616 #### [facility] of [place] [id number] Shorer: Wally Christensen MD Chloride [Moles/Vol] 105 mmol/L Normal 98-110 [facility] Comment on above: Performed By: #### 5 042 #### [facility]/[address] [place], [place] Shorer: Wicho Pressley M.D.,PhD #### 51343, 6399, 82660, 927, 466, 50320, 5616 #### [facility] of [place] [id number] Shorer: Wally Christensen MD CO2 [Moles/Vol] 26 mmol/L Normal 20-32 [facility] Comment on above: Performed By: #### 5 042 #### [facility]/[address] [place] Shorer: Wicho Pressley M.D.,PhD #### 04776, 6399, 51867, 927, 466, 07087, 5616 #### [facility] of [place] [id number] Shorer: Wally Christensen MD Creatinine [Mass/Vol] 0.57 mg/dL Normal 0.50-1.03 [facility] Comment on above: Performed By: #### 5 042 #### [facility]/[address] [place] Shorer: Wicho Pressley M.D.,PhD #### 04299, 6399, 39877, 927, 466, 62293, 5616 #### [facility] of [place] [id number] Shorer: Wally Christensen MD GFR/1.73 sq M.predicted among non-blacks MDRD (S/P/Bld) [Vol rate/Area] 107 mL/min/{1.73_m2} Normal > OR = 60 [facility] Comment on above: Performed By: #### 5 042 #### [facility]/[place] [address] [facility] [address] [place] Shorer: Wicho Pressley M.D.,PhD #### 96999, 6399, 62982, 927, 466, 32050, 5616 #### [facility] of [address], [address], [place] [id number] Shorer: Wally Christensen MD Globulin (S) [Mass/Vol] 2.6 g/dL Normal 1.9-3.7 [facility] Comment on above: Performed By: #### 5 042 #### [facility]/[address] [place] Shorer: Wicho Pressley M.D.,PhD #### 18827, 6399, 13730, 927, 466, 75403, 5616 #### [facility] [address] Shorer: Wally Christensen MD Glucose [Mass/Vol] 95 mg/dL Normal 65-99 [facility] Comment on above: Result Comment: Fasting reference interval Performed By: #### 5 042 #### [facility]/[address] [place] Shorer: Wicho Pressley M.D.,PhD #### 98540, 6399, 81623, 927, 466, 44278, 5616 #### [facility] [place] [id number] Shorer: Wally Christensen MD Potassium [Moles/Vol] 4.2 mmol/L Normal 3.5-5.3 [facility] Comment on above: Performed By: #### 5 042 #### [facility]/[address] [place] Shorer: Wicho Pressley M.D.,PhD #### 88182, 6399, 08889, 927, 466, 07624, 5616 #### [facility] of [address], [address] [place], [place] [id number] Shorer: Wally Christensen MD Protein [Mass/Vol] 6.7 g/dL Normal 6.1-8.1 [facility] Comment on above: Performed By: #### 5 042 #### [facility]/[address] [place], [place] Shorer: Wicho Pressley M.D.,PhD #### 32977, 6399, 60946, 927, 466, 88956, 5616 #### [facility] of [address], [address], [place] [id number] Shorer: Wally Christensen MD Sodium [Moles/Vol] 139 mmol/L Normal 135-146 [facility] Comment on above: Performed By: #### 5 042 #### [facility]/[address] [place], [place] Shorer: Wicho Pressley M.D.,PhD #### 43918, 6399, 18396, 927, 466, 70341, 5616 #### [facility] of [address], [address] [place], [place] [id number] Shorer: Wally Christensen MD Urea nitrogen [Mass/Vol] 17 mg/dL Normal 7-25 [facility] Comment on above: Performed By: #### 5 042 #### [facility]/[address] [place] Shorer: Wicho Pressley M.D.,PhD #### 24400, 6399, 63145, 927, 466, 54161, 5616 #### [facility] of [address], [address] [place] [address] Shorer: Wally Christensen MD FOLATE, SERUMon 02-11-2023 Folate [Mass/Vol] 13.4 ng/mL Normal [facility] Comment on above: Result Comment: Refe rence Range Low: <3.4 Borderline: 3.4-5.4 Normal: >5.4 Performed By: #### 5 042 #### [facility]/[address] [place] Shorer: Wicho Pressley M.D.,PhD #### 52829, 6399, 76934, 927, 466, 46495, 5616 #### [facility] of [place] [address] Shorer: Wally Christensen MD IRON, TIBC AND FERRITIN PANE [facility] 02-11-2023 % SATURATION 4 % (calc) Low 16-45 [facility] Comment on above: Performed By: #### 5 042 #### [facility]/[address] [place] Shorer: Wicho Pressley M.D.,PhD #### 21044, 6399, 75102, 927, 466, 83048, 5616 #### [facility] [address] Shorer: Wally Christensen MD Ferritin [Mass/Vol] 2 ng/mL Low 16-232 [facility] Comment on above: Performed By: #### 5 042 #### [facility]/[address] [place], [place] Shorer: Wicho Pressley M.D.,PhD #### 08004, 6399, 93969, 927, 466, 97880, 5616 #### [facility] of [place] [id number] Shorer: Wally Christensen MD IRON BINDING CAPACITY 595 mcg/dL (calc) High 250-450 [facility] Comment on above: Performed By: #### 5 042 #### [facility] [address] [facility] [place], [place] Shorer: Wicho Pressley M.D.,PhD #### 15081, 6399, 84254, 927, 466, 89645, 5616 #### [facility] [address], [address] [place] [address] Shorer: Wally Christensen MD IRON, TOTAL 22 mcg/dL Low 45-160 [facility] Comment on above: Performed By: #### 5 042 #### [facility]/[place] [id number] [facility] [place] Shorer: Wicho Pressley M.D.,PhD #### 91915, 6399, 93161, 927, 466, 15026, 5616 #### [facility] [address], [address] [place] [address] Shorer: Wally Christensen MD TSH W/REFLEX TO FT4on 2022 TSH W/REFLEX TO FT4 1.87 mIU/L Normal 0.40-4.50 [facility] Comment on above: Performed By: #### 1 7306, 6399, 5616 #### [facility] [place] [address] Shorer: Wally Christensen MD VITAMIN B1 (THIAMINE), BLOOD , LC/MS/MSon 02-11-2023 VITAMIN B1 (THIAMINE), BLOOD, LC/MS/MS 116 nmol/L Normal 78-185 [facility] Comment on above: Result Comment: Vitamin supplementation within 24 hours prior to blood draw may affect the accuracy of the results. This test was developed and its analytical performance characteristics have been determined by [employer] [place], [place]. It has not been cleared or approved by the U.S. Food and Drug Administration. This assay has been validated pursuant to the CLIA regulations and is used for clinical purposes. Performed By: #### 5 042 #### [facility]/[place] [id number] [facility] [address] [place], [place] Shorer: Wicho Pressley M.D.,PhD #### 56297, 6399, 26191, 927, 466, 78047, 5616 #### [facility] [address], [address] [place] [address] Shorer: Wally Christensen MD VITAMIN B12on 02-11-2023 Cobalamin (Vitamin B12) [Mass/Vol] 572 pg/mL Normal 200-1100 [facility] Comment on above: Performed By: #### 5 042 #### [facility] [address] [facility] [place], [place] Shorer: Wicho Pressley M.D.,PhD #### 42556, 6399, 82756, 927, 466, 41399, 5616 #### [facility] [address], [address] [place] [address] Shorer: Wally Christensen MD VITAMIN D,25-OH,TOTAL,IAon 1 VITAMIN D,25-OH,TOTAL,IA 6 ng/mL Low 30-100 [facility] Comment on above: Result Comment: Lesley min D Status 25-OH Vitamin D: Deficiency: <20 ng/mL Insufficiency: 20 - 29 ng/mL Optimal: > or = 30 ng/mL For 25-OH Vitamin D testing on patients on D2-supplementation and patients for whom quantitation of D2 and D3 fractions is required, the QuestAssureD(TM) 25-OH VIT D, (D2,D3), LC/MS/MS is recommended: order code 84010 (patients >2yrs). See Note 1 Note 1 For additional information, please refer to http://education.[employer].Blizuu/faq/CJF281 (This link is being provided for informational/ educational purposes only.) Performed By: #### 1 7306, 6399, 5616 #### [facility] [address], [address] [place] [address] Shorer: Wally Christensen MD Laboratory - Chemistry and C hemistry - challengeon 02-06-2023 Albumin [Mass/Vol] 4.1 g/dL Normal 3.6 - 5.1 g/dL [facility] Albumin/Globulin [Mass ratio] 1.6 {ratio} Normal 1.0 - 2.5 [facility]; [facility] ALP [Catalytic activity/Vol] 69 U/L Normal 37 - 153 U/L [facility]; [facility] ALT [Catalytic activity/Vol] 21 U/L Normal 6 - 29 U/L [facility] AST [Catalytic activity/Vol] 22 U/L Normal 10 - 35 U/L [facility]; [facility] Bilirubin [Mass/Vol] 0.3 mg/dL Normal 0.2 - 1.2 mg/dL [facility]; [facility] Calcium [Mass/Vol] 9.1 mg/dL Normal 8.6 - 10. 4 mg/dL [facility]; [facility] Chloride [Moles/Vol] 105 mmol/L Normal 98 - 110 mmol/L [facility]; [facility] CO2 [Moles/Vol] 26 mmol/L Normal 20 - 32 mmol/L [facility]; [facility] Cobalamin (Vitamin B12) [Mass/Vol] 572 pg/mL Normal 200 - 1100 pg/mL [facility]; [facility] Creatinine [Mass/Vol] 0.57 mg/dL Normal 0.50 - 1.03 mg/dL [facility]; [facility]. Ferritin [Mass/Vol] 2 ng/mL Abnormal 16 - 232 ng/mL [facility]; [facility] Folate [Mass/Vol] 13.4 ng/mL Normal [facility]; [facility]. GFR/1.73 sq M.predicted among non-blacks MDRD (S/P/Bld) [Vol rate/Area] 107 mL/min/{1.73_m2} Normal [facility]; [facility], [facility]. Glucose [Mass/Vol] 95 mg/dL Normal 65 - 99 mg/dL [facility].; [facility], [facility]. Potassium [Moles/Vol] 4.2 mmol/L Normal 3.5 - 5.3 mmol/L [facility].; [facility], [facility] Protein [Mass/Vol] 6.7 g/dL Normal 6.1 - 8.1 g/dL [facility].; [facility], [facility] Sodium [Moles/Vol] 139 mmol/L Normal 135 - 146 mmol/L [facility]; [facility], [facility] Urea nitrogen [Mass/Vol] 17 mg/dL Normal 7 - 25 mg/dL [facility].; [facility], [facility] Laboratory - Hematology and Cell countson 02-06-2023 Basophils (Bld) [#/Vol] 0.122 10*3/uL Normal 0 - 200 {cells/uL} [facility].; [facility], [facility] Basophils/100 WBC (Bld) 1.6 % Normal [facility]; [facility], [facility] Eosinophils (Bld) [#/Vol] 0.16 10*3/uL Normal 15 - 500 {cells/uL} [facility].; [facility], [facility]. Eosinophils/100 WBC (Bld) 2.1 % Normal [facility]; [facility], [facility] Erythrocyte distribution width (RBC) [Ratio] 16.6 % Abnormal 11.0 - 15.0 % [facility].; [facility], [facility]. Hematocrit (Bld) [Volume fraction] 31.9 % Abnormal 35.0 - 45.0 % [facility], [facility].; [facility], [facility] Hemoglobin (Bld) [Mass/Vol] 9.7 g/dL Abnormal 11.7 - 15.5 g/dL [facility].; [facility], [facility]. Lymphocytes (Bld) [#/Vol] 2.424 10*3/uL Normal 850 - 3900 {cells/uL} [facility].; [facility] Lymphocytes/100 WBC (Bld) 31.9 % Normal [facility].; [employer]. MCH (RBC) [Entitic mass] 20.3 pg Abnormal 27.0 - 33.0 pg [facility].; [place] [employer], [employer]. MCHC (RBC) [Mass/Vol] 30.4 g/dL Abnormal 32.0 - 36.0 g/dL [facility].; [place] [employer], [employer]. MCV (RBC) [Entitic vol] 66.9 fL Abnormal 80.0 - 100.0 fL [facility].; [place] [employer], [facility]. Monocytes (Bld) [#/Vol] 0.532 10*3/uL Normal 200 - 950 {cells/uL} [facility].; [place] [employer], [employer]. Monocytes/100 WBC (Bld) 7.0 % Normal [facility].; [place] [employer], [employer]. Neutrophils (Bld) [#/Vol] 4.362 10*3/uL Normal 1500 - 7800 {cells/uL} [place] [employer] [facility].; [employer], [employer]. Neutrophils/100 WBC (Bld) 57.4 % Normal [place] [employer] [facility].; [employer], [employer]. Platelet mean volume (Bld) [Entitic vol] 9.8 fL Normal 7.5 - 12.5 fL [place] [employer] [facility].; [employer], [facility]. Platelets (Bld) [#/Vol] 397 10*3/uL Normal 140 - 400 [facility] [employer].; [place] [employer], [employer]. RBC (Bld) [#/Vol] 4.77 10*6/uL Normal 3.80 - 5.1 0 {Million/uL} [place] [employer].; [employer], [employer]. WBC (Bld) [#/Vol] 7.6 10*3/uL Normal 3.8 - 10.8 [place] [employer].; [employer], [employer]. No Panel Informationon 02-06 % SATURATION 4 {%_(calc)} Abnormal 16 - 45 {%_(calc)} [place] [employer].; [employer], [employer]. BUN/CREATININE RATIO SEE NOTE: Normal 6 - [facility].; [employer] COMMENT(S) SEE NOTE Normal [place] [employer] [facility].; [employer] GLOBULIN 2.6 Normal 1.9 - 3.7 [place] [facility].; [employer], [employer]. IRON BINDING CAPACITY 595 Abnormal 250 - 450 [facility].; [employer], [employer]. IRON, TOTAL 22 ug/dL Abnormal 45 - 160 ug/dL [place] [employer] [facility].; [employer], [employer]. TSH W/REFLEX TO FT4 1.87 {mIU/L} Normal 0.40 - 4.50 {mIU/L} [place] [employer].; [employer], [employer]. VITAMIN B1 (THIAMINE), BLOOD, LC/MS/MS 116 nmol/L Normal 78 - 185 nmol/L [facility].; [employer]. VITAMIN D,25-OH,TOTAL,IA 6 ng/mL Abnormal 30 - 100 ng/mL [place] [facility].; [employer]. Urgent Care Visit Reporton 0 06-13-2018 Urgent Care Visit Report [facility] [address] [place] [address] [address] [place] [address] OFFICE VISIT Date of Service: 06/13/18 MR#: [id number] Acct: [id number] Name: SHELLIE HDEZ Rep #: [id number] : 1965 Provider: Javon CALDWELL Age/Sex: 53/F Location: [facility] Status: Signed Intake Intake Visit Reasons: PRE EMPLOYMENT PHYSICAL (MAJORA) HPI HPI Details: SHELLIE HDEZ, is a 53 F who presents to the office today for Office Procedures Physical Exam Coding PE Coding Sports/School Physical: No DOT PE: No Pre-employment PE: Yes Assessment AND Plan Problems 1. Physical exam, pre-employment Z02.1 Plan See attached scanned preemployment physical examination forms Coding Level of Care Code No Charge Diagnoses Physical exam, pre-employment Z02.1 Additional Codes PE Coding - Pre-employment PE: Yes (PREPE) 06/13/18 1321 Date Javon Meyer Signature: Date (if applicable) CC: Normal [facility] ANION GAPon 03-09-2017 Anion gap 15.0 mmol/L Normal 8.0-16.0 [facility] Comment on above: Result Comment: ANIO N GAP = Sodium -(Chloride + CO2) Performed By: #### C BC, BMP, ANION, OSMOL, EGFR1, D-DMR, TROPT ####[facility] [address] [place] [address] BASIC METABOL PANELon 2017 Calcium 8.9 mg/dL Normal 8.5-10.5 [facility] Comment on above: Performed By: #### C BC, BMP, ANION, OSMOL, EGFR1, D-DMR, TROPT ####[facility] [address] [place] [address] Chloride 104 mmol/L Normal 98-111 [facility] Comment on above: Performed By: #### C BC, BMP, ANION, OSMOL, EGFR1, D-DMR, TROPT ####[facility] [address] [place] [address] CO2 21 mmol/L Low 23-33 [facility] Comment on above: Performed By: #### C BC, BMP, ANION, OSMOL, EGFR1, D-DMR, TROPT ####[employer] [address] [place] [address] Creatinine 0.5 mg/dL Normal 0.4-1.2 [facility] Comment on above: Performed By: #### C BC, BMP, ANION, OSMOL, EGFR1, D-DMR, TROPT ####[facility] [address] [place] [address] Glucose mass conc 95 mg/dL Normal 70-108 [facility] Comment on above: Performed By: #### C BC, BMP, ANION, OSMOL, EGFR1, D-DMR, TROPT ####[facility] [address] [place] [address] Potassium molar conc 4.1 mmol/L Normal 3.5-5.2 [facility] Comment on above: Performed By: #### C BC, BMP, ANION, OSMOL, EGFR1, D-DMR, TROPT ####[facility] [address] [place] [address] Sodium 140 mmol/L Normal 135-145 [facility] Comment on above: Performed By: #### C BC, BMP, ANION, OSMOL, EGFR1, D-DMR, TROPT ####[address] [place] [address] Urea nitrogen 10 mg/dL Normal 7-22 [facility] Comment on above: Performed By: #### C BC, BMP, ANION, OSMOL, EGFR1, D-DMR, TROPT ####[address] [place] [address] CALCULATED OSMOLALITYon 02-13 Osmolality 278.2 mOsmol/kg Normal 275.0-300. [facility] Comment on above: Performed By: #### C BC, BMP, ANION, OSMOL, EGFR1, D-DMR, TROPT ####[address] [place] [address] CBC WITH DIFFERENTIALon 02-13 Basophils Auto #/vol (Bld) 0.1 thou/mm3 Normal 0.0-0.1 [facility] Comment on above: Performed By: #### C BC, BMP, ANION, OSMOL, EGFR1, D-DMR, TROPT ####[facility] [address] [place] [address] Basophils/100 WBC Auto (Bld) 1.2 % Normal [facility] Comment on above: Performed By: #### C BC, BMP, ANION, OSMOL, EGFR1, D-DMR, TROPT ####[facility] [address] [place] [address] Eosinophils 0.1 thou/mm3 Normal 0.0-0.4 [facility] Comment on above: Performed By: #### C BC, BMP, ANION, OSMOL, EGFR1, D-DMR, TROPT ####[place] [address] Eosinophils/100 leukocytes 2.0 % Normal [facility] Comment on above: Performed By: #### C BC, BMP, ANION, OSMOL, EGFR1, D-DMR, TROPT ####[place] [address] Erythrocyte distribution width Auto Ratio (RBC) 13.9 % Normal 11.5-14.5 [facility] Comment on above: Performed By: #### C BC, BMP, ANION, OSMOL, EGFR1, D-DMR, TROPT ####[place] [address] Erythrocytes (RBC) 4.35 mill/mm3 Normal 4.20-5.40 [facility] Comment on above: Performed By: #### C BC, BMP, ANION, OSMOL, EGFR1, D-DMR, TROPT ####[place] [address] Erythrocytes (RBC) 0 /100 wbc Normal [facility] Comment on above: Performed By: #### C BC, BMP, ANION, OSMOL, EGFR1, D-DMR, TROPT ####[place] [address] Hematocrit (HCT) 38.8 % Normal 37.0-47.0 [facility] Comment on above: Performed By: #### C BC, BMP, ANION, OSMOL, EGFR1, D-DMR, TROPT ####[place] [address] Hemoglobin mass conc (Bld) 13.1 gm/dl Normal 12.0-16.0 [facility] Comment on above: Performed By: #### C BC, BMP, ANION, OSMOL, EGFR1, D-DMR, TROPT ####[address] [place] [address] Lymphocytes 1.7 thou/mm3 Normal 1.0-4.8 [facility] Comment on above: Performed By: #### C BC, BMP, ANION, OSMOL, EGFR1, D-DMR, TROPT ####[address] [place] [address] Lymphocytes/100 leukocytes 37.6 % Normal [facility] Comment on above: Performed By: #### C BC, BMP, ANION, OSMOL, EGFR1, D-DMR, TROPT ####[address] [place] [address] MCH 30.1 pg Normal 27.0-31.0 [facility] Comment on above: Performed By: #### C BC, BMP, ANION, OSMOL, EGFR1, D-DMR, TROPT ####[address] [place] [address] MCHC mass conc (RBC) 33.7 gm/dl Normal 33.0-37.0 [facility] Comment on above: Performed By: #### C BC, BMP, ANION, OSMOL, EGFR1, D-DMR, TROPT ####[place] [address] MCV 89.1 fL Normal 81.0-99.0 [facility] Comment on above: Performed By: #### C BC, BMP, ANION, OSMOL, EGFR1, D-DMR, TROPT ####[address] [place] [address] Monocytes 0.7 thou/mm3 Normal 0.4-1.3 [facility] Comment on above: Performed By: #### C BC, BMP, ANION, OSMOL, EGFR1, D-DMR, TROPT ####[address] [place] [address] Monocytes/100 leukocytes 14.5 % Normal [facility] Comment on above: Performed By: #### C BC, BMP, ANION, OSMOL, EGFR1, D-DMR, TROPT ####[address] [place] [address] Platelet mean volume (PMV) 8.8 mcm Normal 7.4-10.4 [facility] Comment on above: Performed By: #### C BC, BMP, ANION, OSMOL, EGFR1, D-DMR, TROPT ####[address] [place] [address] Platelets 204 thou/mm3 Normal 130-400 [facility] Comment on above: Performed By: #### C BC, BMP, ANION, OSMOL, EGFR1, D-DMR, TROPT ####[facility] [address] [place] [address] SEGS 44.7 % Normal [facility] Comment on above: Performed By: #### C BC, BMP, ANION, OSMOL, EGFR1, D-DMR, TROPT ####[facility] [address] [place] [address] SEGS ABSOLUTE COUNT 2.1 thou/mm3 Normal 1.8-7.7 [facility] Comment on above: Performed By: #### C BC, BMP, ANION, OSMOL, EGFR1, D-DMR, TROPT ####[address] [place] [address] WBC (Leukocytes) 4.6 thou/mm3 Low 4.8-10.8 [facility] Comment on above: Performed By: #### C BC, BMP, ANION, OSMOL, EGFR1, D-DMR, TROPT ####[address] [place] [address] D-DIMERon 03-09-2017 D-DIMER 320.00 ng/ml FEU Normal 0.00-500.0 [facility] Comment on above: Result Comment: NEGA TIVE REFERENCE RANGE: 0-500 ng/mL(FEU)NEGATIVE: With a low to medium pretest probability (Wellsscore), a normal result rules out a pulmonary embolism andvenous thrombosis.POSITIVE REFERENCE RANGE: >500 ng/mL(FEU)POSITIVE: It is recommended that when an abnormal D-Dimerconcentration (>500 ng/mL) is obtained along with clinicallysignificant risk factors, symptoms or signs of DVT or PE, thatfurther diagnostic testing be performed. Performed By: #### G ASTR ####[address] [place] [address] ED Noteon 03-09-2017 HIM IP Note OR Sleeve Presser Operator Normal [facility] HIM IP Note OR Sleeve Presser Operator Normal [facility] HIM IP Note OR Sleeve Presser Operator Normal [facility] HIM IP Note OR Sleeve Presser Operator Normal [facility] ED Provider Noteon 8 HIM IP Note OR Sleeve Presser Operator Normal [facility] GFR, ESTIMATEDon 03-09-2017 eGFR (MDRD) mL/min/{1.73_m2} Normal [facility] Comment on above: Result Comment: Stag e Description GFR, ml/min/1.73 m2 - At increased risk > or = 60 (with chronic kidney disease risk factors) 1 Normal or increased GFR > or = 90 2 Mildly or decreased GFR 60 - 89 3 Moderately decreased GFR 30 - 59 4 Severely decreased GFR 15 - 29 5 Kidney failure <15 (or dialysis)Estimated GFR calculated using abbreviated MDRD formula asrecommended by National Kidney Foundation. Calculation basedupon serum creatinine and adjusted for age, gender & race.Shantel. Internal Med., Vol. 139 (2) pg 137-147. Performed By: #### C BC, BMP, ANION, OSMOL, EGFR1, D-DMR, TROPT ####[employer] [address] [place] [address] GROUP A STREP REFLEXon 03-09 GROUP A STREP Negative Normal NEGATIVE [facility] Comment on above: Performed By: #### G ASTR ####[facility] [address] [place] [address] REFLEX THROAT C + S INDICATED Normal [facility] Comment on above: Performed By: #### G ASTR ####[facility] [employer] [address] [place] [address] INFLUENZA A + B ANTIGENon INFLUENZA A AG Positive Abnormal NEGATIVE [facility] Comment on above: Performed By: #### F LUAB ####[facility] [employer] [address] [place] [address] INFLUENZA B AG Negative Normal NEGATIVE [facility] Comment on above: Performed By: #### F LUAB ####[facility] [address] [place] [address] THROAT/NOSE CULTUREon 2017 THROAT/NOSE CULTURE MICROBIOLOGY REPORT [facility], [address] [place], [place], [address]KYDRCVG: SHELLIE HDEZ : ED [phone] : 1965 AGE: 51 SEX: FADM: 03/09/17 Att. Physician: MALORIE MONROYOrder Id: [id number] Req. Physician: Curtis ANDREWSce: throatSite:Collected: 03/09/17 05:56Current Antibiotics: not statedAntibiotics comment: STATUS OF ORDERED AND REPORTED TESTSTHROAT/NOSE CULTURE FINAL 03/11/17THROAT/NOSE CULTURE FINAL 03/11/17 06: Normal jaycob- wbxhrtwahrh37/28/18 Normal jayocb Normal [facility] Comment on above: Performed By: #### G ASTR ####[facility] [address] [place] [address] TROPONIN-Ton 03-09-2017 Troponin T.cardiac mass conc ug/L Normal [facility] Comment on above: Result Comment: <0.0 10 ng/ml Normal> or = 0.010 ng/ml Elevated (99%) Consistent with myocardial damageCardiac troponin values can be elevated by many disease states in additionto acute ischemia. These include, but are not limited to: chronic renalfailure, CHF, CVA, pulmonary embolus, COPD, myocardial trauma/surgery,myocarditis, pericarditis, tachycardia, aortic dissection, amyloidosis,sepsis and strenuous exercise. Serial measurement of troponin is stronglyrecommended as a first step in determining whether a low level elevationrepresents an acute or chronic condition. Performed By: #### G ASTR ####[address] [place] [address] Troponin T.cardiac mass conc ug/L Normal [facility] Comment on above: Result Comment: <0.0 10 ng/ml Normal> or = 0.010 ng/ml Elevated (99%) Consistent with myocardial damageCardiac troponin values can be elevated by many disease states in additionto acute ischemia. These include, but are not limited to: chronic renalfailure, CHF, CVA, pulmonary embolus, COPD, myocardial trauma/surgery,myocarditis, pericarditis, tachycardia, aortic dissection, amyloidosis,sepsis and strenuous exercise. Serial measurement of troponin is stronglyrecommended as a first step in determining whether a low level elevationrepresents an acute or chronic condition. Performed By: #### G ASTR ####[address] [place] [address] XR CHEST PORTABLEon 03-09-19 XR CHEST PORTABLE EXAM:XR Chest, 1 ViewCLINICAL HISTORY:CoughTECHNIQUE:AP mobile upright chest x-rayCOMPARISON:No relevant prior studies available.FINDINGS:Lungs: No pneumonia, pulmonary edema, or obvious mass.Pleural space: No pleural effusion. No pneumothorax.Heart: Unremarkable. No cardiomegaly.Mediastinum: Unremarkable. Hilar and mediastinal silhouettes are normal.Bones/joints: Unremarkable.IMPRESSION: No acute cardiopulmonary disease.This report has been created using voice recognition software. It may contain minor errors which are inherent in voice recognition technology.Final report electronically signed by Dr. Tony Johns on 03/09/2017 7:03 AMInterpreted by:CHELSEA De Leonigned by:Tony Johns MD03/09/17inal result Normal [facility] Vital Signs Date Time Vital Sign Value Performing Clinician Facility 11-27-2023 13:42-0400 Body height 151.13 cm Nickie Thompson LPN [facility], [facility].; [facility], [facility]. 11-27-2023 13:42-0400 Body mass index (BMI) [Ratio] 34.16 kg/m2 Nickie Thompson LPN [facility], [facility].; [facility], [facility]. 11-27-2023 13:42-0400 Body surface area Derived from formula 1.74 m2 Nickie Thompson LPN [facility], [facility].; [facility], [facility]. 11-27-2023 13:42-0400 Body temperature 98.8 [degF] Nickie Thompson LPN [facility], [facility].; [facility], [facility]. Comment on above: Method: Tympanic 11-27-2023 13:42-0400 Body weight 78.02 kg Nickie Thompson LPN [facility], [facility].; [facility], [facility]. 11-27-2023 13:42-0400 Diastolic blood pressure 75 mm[Hg] Nickie Thompson LPN [facility], [facility]. Comment on above: Patient Position: Sitting; Cuff Location : Left Arm; Cuff Size: Standard 11-27-2023 13:42-0400 Heart rate 66 /min Nickie Thompson LPN [facility] Comment on above: Pattern: Regular 11-27-2023 13:42-0400 Inhaled oxygen concentration 21 % Nickie Thompson LPN [facility], [facility].; [facility], [facility]. Comment on above: Room air 11-27-2023 13:42-0400 SaO2% (BldA) [Mass fraction] 97 % Nickie Thompson LPN [facility], [facility].; [facility] 11-27-2023 13:42-0400 Systolic blood pressure 115 mm[Hg] Nickie Thompson LPN [facility], [facility].; [place] [facility], [employer]. Comment on above: Patient Position: Sitting; Cuff Location : Left Arm; Cuff Size: Standard 05-04-2023 14:41-0400 Body height 151.13 cm Irwin Huan [facility], [facility].; [facility], [facility]. 05-04-2023 14:41-0400 Body mass index (BMI) [Ratio] 33.56 kg/m2 Irwin Huan [facility], [facility].; [facility], [facility]. 05-04-2023 14:41-0400 Body surface area Derived from formula 1.73 m2 Irwin Huan AGRONOMY SUPERVISOR [facility], [facility].; [facility], [facility]. 05-04-2023 14:41-0400 Body weight 76.66 kg Irwin Huan [facility], [facility].; [facility], [facility]. 05-04-2023 14:41-0400 Diastolic blood pressure 69 mm[Hg] Irwin Pressley AGRONOMY SUPERVISOR [facility], [facility].; [place] [facility], [employer]. Comment on above: Patient Position: Sitting; Cuff Location : Left Arm; Cuff Size: Standard 05-04-2023 14:41-0400 Heart rate 68 /min Irwin Huan AGRONOMY SUPERVISOR [facility], [facility].; [facility], [facility]. Comment on above: Pattern: Regular 05-04-2023 14:41-0400 Inhaled oxygen concentration 20 % Irwinbashir Pressley RENZO [facility].; [facility], [facility]. Comment on above: Room air 05-04-2023 14:41-0400 Inhaled oxygen concentration 21 % Irwinbashir Pressley RENZO [facility], [facility].; [facility], [employer]. Comment on above: Room air 05-04-2023 14:41-0400 SaO2% (BldA) [Mass fraction] 97 % Irwinbashir Pressley RENZO [facility].; [facility], [facility]. 05-04-2023 14:41-0400 Systolic blood pressure 114 mm[Hg] Irwinbashir Pressley RENZO [facility].; [facility], [facility]. Comment on above: Patient Position: Sitting; Cuff Location : Left Arm; Cuff Size: Standard 02-13-2023 08:32-0500 Body height 151.13 cm Irwin Huangucci MULLER [facility], [facility].; [facility], [facility]. 02-13-2023 08:32-0500 Body mass index (BMI) [Ratio] 31.58 kg/m2 Irwin Huangucci MULLER [facility], [facility].; [facility], [facility]. 02-13-2023 08:32-0500 Body surface area Derived from formula 1.68 m2 Irwin Huangucci MULLER [facility], [facility].; [facility], [facility]. 02-13-2023 08:32-0500 Body weight 72.12 kg Irwin Huangucci MULLER [facility], [facility].; [facility], [facility]. 02-13-2023 08:32-0500 Diastolic blood pressure 78 mm[Hg] Irwinbashir Pressley RENZO [facility], [facility].; [place] [facility], [facility]. Comment on above: Patient Position: Sitting; Cuff Location : Left Arm; Cuff Size: Standard 02-13-2023 08:32-0500 Heart rate 93 /min Irwin Huan RENZO [facility], [facility].; [facility], [facility]. Comment on above: Pattern: Regular 02-13-2023 08:32-0500 Systolic blood pressure 125 mm[Hg] Irwin Pressley RENZO [facility], [facility]. Comment on above: Patient Position: Sitting; Cuff Location : Left Arm; Cuff Size: Standard 02-06-2023 08:18-0500 Body weight 72.12 kg Irwin Pressley RENZO [facility] 02-06-2023 08:18-0500 Diastolic blood pressure 69 mm[Hg] Irwin Pressley RENZO [facility], [facility]. Comment on above: Patient Position: Sitting; Cuff Location : Left Arm; Cuff Size: Standard 02-06-2023 08:18-0500 Heart rate 81 /min Irwin Pressley RENZO [facility], [facility].; [facility], [facility]. Comment on above: Pattern: Regular 02-06-2023 08:18-0500 Systolic blood pressure 104 mm[Hg] Irwin Pressley RENZO [facility], [facility].; [facility], [facility]. Comment on above: Patient Position: Sitting; Cuff Location : Left Arm; Cuff Size: Standard 01-19-2023 10:27-0500 Body height 151.13 cm Brittny Sanchez RN [facility], [facility].; [facility], [facility]. 01-19-2023 10:27-0500 Body mass index (BMI) [Ratio] 31.18 kg/m2 Brittny Sanchez RN [facility], [facility].; [facility], [facility]. 01-19-2023 10:27-0500 Body surface area Derived from formula 1.67 m2 Brittny Sanchez RN [facility], [facility].; [facility], [facility]. 01-19-2023 10:27-0500 Body temperature 97.8 [degF] Brittny Sanchez RN [facility], [facility].; [employer], [facility]. Comment on above: Method: Tympanic 01-19-2023 10:27-0500 Body weight 71.22 kg Brittny Sanchez RN [facility], [facility].; [facility], [facility]. 01-19-2023 10:27-0500 Diastolic blood pressure 70 mm[Hg] Brittny Sanchez RN [facility]. Comment on above: Patient Position: Sitting; Cuff Location : Right Arm; Cuff Size: Standard 01-19-2023 10:27-0500 Heart rate 79 /min Britt[facility] [employer] Comment on above: Pattern: Regular 01-19-2023 10:27-0500 Inhaled oxygen concentration 20 % Andrea Lala PA-C Work Phone: [facility] Comment on above: Room air 01-19-2023 10:27-0500 Inhaled oxygen concentration 21 % Britt[facility] [place] [employer]. Comment on above: Room air 01-19-2023 10:27-0500 SaO2% (BldA) [Mass fraction] 96 % Britt[facility]. 01-19-2023 10:27-0500 Systolic blood pressure 116 mm[Hg] Britt[facility]. Comment on above: Patient Position: Sitting; Cuff Location : Right Arm; Cuff Size: Standard Encounters Encounter Date Encounter Type Care Provider Facility Start: 07-09-2024 ambulatory ANDREA LALA [facility] Start: 11-27-2023 End: 11-28-2023 Office outpatient visit 15 minutes Andrea CALDWELL-C Work Phone: [facility] [employer] Start: 11-27-2023 Review Andrea franklin PA-C Work Phone: [facility]. Start: 10-19-2023 End: 10-19-2023 ambulatory HARTLEY AMI E HARTLEY SMT TECHNICIAN~[id number] Facility:[facility] Start: 06-22-2023 End: 06-22-2023 Orders Andrea Lala PA-C Work Phone: [facility] Start: 05-04-2023 End: 05-04-2023 Office outpatient visit 25 minutes Luke Spike PA-C Work Phone: [facility]. Start: 05-02-2023 End: 05-02-2023 Orders Luke Spike PA-C Work Phone: [facility]. Start: 03-27-2023 End: 03-27-2023 Orders Luke Spike PA-C Work Phone: [facility]. Start: 03-20-2023 End: 03-20-2023 Orders Luke Spike PA-C Work Phone: [facility]. Start: 02-13-2023 End: 02-13-2023 Office outpatient visit 25 minutes Luke Spike PA-C Work Phone: [employer] Start: 02-06-2023 End: 02-07-2023 Office outpatient visit 25 minutes Luke Spike PA-C Work Phone: [employer] Start: 01-19-2023 End: 01-19-2023 Office outpatient new 45 minutes Luke Spike PA-C Work Phone: [facility] Start: 06-13-2018 End: 06-13-2018 Patient encounter procedure Javon Lott Facility:[facility] Start: 03-09-2017 End: 03-09-2017 Emergency department patient visit Physician Tami Remy [facility] Start: 09-25-2016 End: 09-26-2016 Ambulatory JORGE A MANNING Facility:01 Procedures Date Procedure Procedure Detail Performing Clinician Start: 05-02-2023 End: 05-04-2023 Fine needle aspiration bx w/us gdn 1st lesion Luke Marva PedrazaSpike PA-C Work Phone: Start: 02-06-2023 End: 03-21-2023 Screening digital breast tomosynthesis bi Andrea Pedrazastetler PA-C Work Phone: Start: 03-09-2017 TROPONIN Physician No Family Start: 03-09-2017 ANION GAP Physician No Family Start: 03-09-2017 BASIC METABOLIC PANEL P hysician No Family Start: 03-09-2017 CBC WITH AUTO DIFFERENTIAL Physician No Family Start: 03-09-2017 D-DIMER, QUANTITATIVE P hysician No Family Start: 03-09-2017 GLOMERULAR FILTRATIO N RATE, ESTIMATED Physician No Family Start: 03-09-2017 OSMOLALITY Physician No Family Start: 03-09-2017 TROPONIN Physician No Family Start: 03-09-2017 EKG 12-LEAD Physician No Family Start: 03-09-2017 Radiologic exam ches t single view Physician No Family Start: 03-09-2017 GROUP A STREP, REFLEX P hysician No Family Start: 03-09-2017 RAPID INFLUENZA A/B ANTIGENS Physician No Family Start: 03-09-2017 Throat culture Physicia n No Family Start: 02-13-2012 End: 02-13-2012 Bypass of stomach Brittny Sanchez RN Start: 02-12-1997 End: 02-12-1997 Total hysterectomy Brittny Sanchez RN Comment on above: left ovary removed Start: 02-12-1991 End: 02-12-1991 Appendectomy Brittny Sanchez RN Start: 02-12-1991 End: 02-12-1991 Cholecystectomy Brittny Sanchez RN section Brittny Sanchez RN Comment on above: 1985 and 1987 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 Irwin Pressley LPN 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 Andrea Lala PA-C Work Phone: 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 Irwin Pressley LPN 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 Irwin Pressley LPN 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 Brittny Sanchez RN 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 Start: 03-Aug-2023 15:10-04:00 ELHAM Lala Appointment Request [employer] Start: 06-22-2023 25 hydroxy includes fractions if performed Vitamin D, 25-Hydroxy, LC/MS/MS (95615) Start: 22-Jun-2023 Request [employer]; [facility]. Start: 06-22-2023 Assay of ferritin IRON DEFICIE NCY PROFILE ([id number]) Start: 22-Jun-2023 Request [employer]; [facility]. Start: 06-22-2023 Blood count complete auto&auto difrntl wbc CBC, PLATELETS & AUT DIFF (F) (38372) Start: 22-Jun-2023 Request [employer]; [facility]. Start: 06-22-2023 Cyanocobalamin vitamin b-12 TAMIN B-12 SERUM (25720) Start: 22-Jun-2023 Request [employer]; [facility]. Start: 05-07-2023 Patient encounter procedure Me dical; EXTENDED RTN - 3 mo rtn [facility]. Start: 07-May-2023 8:00 ELHAM Lala Appointment Request [facility]. Start: 05-04-2023 25 hydroxy includes fractions if performed Vitamin D, 25-Hydroxy, LC/MS/MS ([id number]) Start: 04-May-2023 15:31-04:00 Request [employer]; [facility]. Start: 05-04-2023 Assay of ferritin IRON DEFICIE NCY PROFILE ([id number]) Start: 04-May-2023 15:31-04:00 Request [employer]; [facility]. Start: 05-04-2023 Blood count complete auto&auto difrntl wbc CBC, PLATELETS & AUT DIFF (F) ([id number]) Start: 04-May-2023 15:31-04:00 Request [facility].; [facility]. Start: 05-04-2023 Patient encounter procedure [facility]. Start: 05-02-2023 Fine needle aspirati on bx w/us gdn 1st lesion FINE NEEDLE ASPIRATION BIOPSY OF LEFT BREAST WITH ULTRASOUND GUIDANCE (61356) Start: 02-May-2023 Intent [facility].; [facility] Start: 03-27-2023 Bx breast w/device 1 st lesion ultrasound guid BIOPSY OF BREAST WITH ULTRASOUND GUIDANCE (65746) Start: 27-Mar-2023 Intent [facility].; [facility]. Start: 03-20-2023 Blood count complete auto&auto difrntl wbc CBC, PLATELETS & AUT DIFF (F) (90343) Start: 20-Mar-2023 Request [facility].; [facility]. Start: 03-20-2023 Nursing evaluation o f patient and report Medical; Nurse visit - fasting labs-- [facility]. Start: 20-Mar-2023 9:20 NURSE, FLOAT Appointment Request [facility]. Start: 03-20-2023 Lipid panel LIPID PANEL ([id number] 0061) Start: 20-Mar-2023 8:17 Request [facility].; [facility]. Start: 02-14-2023 Patient encounter procedure Me dical; EXTENDED RTN - go over Labs results [facility]. Start: 14-Feb-2023 8:20 ELHAM Lala Appointment Request [facility]. Start: 02-06-2023 Screening digital br east tomosynthesis bi Mammogram 3D (tomosynthesis), bilateral (37009) Start: 06-Feb-2023 Intent [facility].; [employer] Start: 02-06-2023 Assay of thiamine-vi tamin b-1 THIAMINE (B-1) (82507) Start: 06-Feb-2023 9:03 Request [facility].; [employer], [facility]. Start: 02-06-2023 Assay of folic acid serum CARY TE (21996) Start: 06-Feb-2023 9:03 Request [employer]; [employer] Start: 02-06-2023 Cyanocobalamin vitamin b-12 TAMIN B-12 SERUM (55612) Start: 06-Feb-2023 9:03 Request [employer]; [facility]. Start: 02-06-2023 25 hydroxy includes fractions if performed Vitamin D, 25-Hydroxy, LC/MS/MS ([id number]) Start: 06-Feb-2023 9:03 Request [employer]; [facility]. Start: 02-06-2023 Assay of thyroid stimulating hormone tsh TSH W/ REFL FREE T4 (26574,[id number]) ([id number]) Start: 06-Feb-2023 9:03 Request [employer]; [facility]. Start: 02-06-2023 Assay of ferritin IRON DEFICIE NCY PROFILE ([id number],[id number]) Start: 06-Feb-2023 9:03 Request [employer]; [facility]. Start: 02-06-2023 Comprehensive metabo lic panel CMP w/ GFR* (21639) Start: 06-Feb-2023 9:02 Request [employer]; [facility]. Start: 02-06-2023 Blood count complete auto&auto difrntl wbc CBC, PLATELETS & AUT DIFF (F) (81318) Start: 06-Feb-2023 9:02 Request [employer]; [employer] Payers Date Payer Category Payer Self-pay 1965 Unknown [id number] 1966 Unknown [id number] 1959 Unknown [id number] 1959 Private Health Insurance [id number] Unknown [id number] Unknown [employer] Social History Date Type Detail Facility Alcohol Use: Alcohol Use: ; None. [facility]. Spouse Spouse [facility].; [facility]. Female [facility].; [facility]. Work Phone: Tobacco smoking consumption unknown [facility].; [facility]. Work Phone: Tobacco Use: Tobacco Use: ; Former smoker . [facility]. Ex-smoker [facility].; [facility]. Work Phone: Summary Purpose Family History No Family History Records FoundNo Family History Records FoundNo Family History Records FoundNo Family History Records FoundNo Family History Records FoundNo Family History Records Found Advance Directives No Advanced Directives Records FoundNo Advanced Directives Records FoundNo Advanced Directives Records FoundNo Advanced Directives Records FoundNo Advanced Directives Records FoundNo Advanced Directives Records Found Additional Source Comments INFORMATION SOURCE (unrecogn ized section and content) DATE CREATED AUTHOR 08/06/2017 [facility] DATE CREATED AUTHOR AUTHOR'S ORGANIZ ATION 08/08/2017 [facility] DATE CREATED AUTHOR AUTHOR'S ORGANIZ ATION 06/20/2018 [facility] DATE CREATED AUTHOR AUTHOR'S ORGANIZ ATION 05/06/2023 [facility] DATE CREATED AUTHOR AUTHOR'S ORGANIZ ATION 04/18/2024 [facility] DATE CREATED AUTHOR AUTHOR'S ORGANIZ ATION 07/12/2024 [facility] FOR RECORDS PERTAINING TO PATIENTS WHO ARE OR HAVE BEEN ENROLLED IN A CHEMICAL DEPENDENCY/SUBSTANCEABUSE PROGRAM, SOME INFORMATION MAY BE OMITTED. This clinical summary was aggregated from multiple sources. Caution should be exercised in using it in the provision of clinical care. This summary normalizes information from multiple sources, and as a consequence, information in this document may materially change the coding, format and clinical context of patient data. In addition, data may be omitted in some cases. CLINICAL DECISIONS SHOULD BE BASED ON THE PRIMARY CLINICAL RECORDS. [employer] provides no warranty or guarantee of the accuracy or completeness of information in this document.
[2024-10-18 09:21] VITALS: BP 127/82; PULSE 67; RESP 16; TEMP 36.8; O2SAT 98
== END 2024-10-18 09:21 | disposition home or self-care (01) ==
PROVIDERS: Emergency Provider Emergency Medicine; Visit Provider Emergency Medicine
DX: S05.02XA Injury of conjunctiva and corneal abrasion without foreign body, left eye, initial encounter (principal); X58.XXXA Exposure to other specified factors, initial encounter; R51.9 Headache, unspecified
CPT/HCPCS: 70450; 99283